=== PATIENT | male | born 1955 | race Caucasian/White ===

== ENCOUNTER 2016-09-05 10:45 | Emergency (ER) | payer BC ==
[2016-09-05] MEDS ORDERED: ceFAZolin 1,000 MG VIAL IM STA (11:23)
--- NOTE | 2016-09-05 11:26 | ED ---
Extremity Problem HPI - General Chief complaint: Extremity Problem,Nontraumatic Stated complaint: rash left ankle Time Seen by Provider: 09/05/16 11:18 Source: patient, RN notes reviewed Mode of arrival: ambulatory Limitations: no limitations - History of Present Illness Initial comments: 61-year-old male present emergency department with chief complaint of left leg rash. Patient states this started over the last few days. Patient states is slightly itchy but states his is hot and red. Patient is not diabetic. Patient states never any like this in the past. No history of MRSA VRE. Patient states that there is no weeping or drainage from the site. Patient denies fever or chills and denies any other areas of rash or any other complaints. - Related Data Previous Rx's Medication Instructions Recorded Sulfamethox-Tmp 800-160Mg [Bactrim 1 each PO Q12HR #20 tab 09/05/16 Ds] Review of Systems ROS Statement: Those systems with pertinent positive or pertinent negative responses have been documented in the HPI. ROS Other: All systems not noted in ROS Statement are negative. Past Medical History Past Medical History: Atrial Fibrillation, Coronary Artery Disease (CAD), Hyperlipidemia, Hypertension History of Any Multi-Drug Resistant Organisms: None Reported Additional Past Surgical History / Comment(s): cardiac ablation Past Psychological History: No Psychological Hx Reported Smoking Status: Never smoker Past Alcohol Use History: Rare Past Drug Use History: None Reported General Exam Limitations: no limitations General appearance: alert, in no apparent distress Respiratory exam: Present: normal lung sounds bilaterally. Absent: respiratory distress, wheezes, rales, rhonchi, stridor Cardiovascular Exam: Present: regular rate, normal rhythm, normal heart sounds. Absent: systolic murmur, diastolic murmur, rubs, gallop, clicks Extremities exam: Present: other (Left lower extremity there is an area of erythema that is approximately 6-7 cm and a small area of blistering noted there is no open lesions or sores pedal pulses equal bilaterally there is warm with palpation) Course Vital Signs 09/05/16 10:56 Temperature 98.5 F Pulse Rate 70 Respiratory 18 Rate Blood Pressure 127/70 O2 Sat by Pulse 96 Oximetry Medical Decision Making - Medical Decision Making 61-year-old male presented for rash was left lower leg. Patient appears to have possible contact dermatitis with secondary cellulitis. Patient will be given a shot of antibiotics and given oral antibiotics at this time patient will have a recheck in one to 2 days and return parameters were discussed. Patient agrees to plan. Disposition Clinical Impression: Left leg cellulitis, Contact dermatitis Disposition: HOME SELF-CARE Condition: Stable Instructions: Cellulitis (ED) Additional Instructions: Please return to the Emergency Department if symptoms worsen or any other concerns. Prescriptions: Sulfamethox-Tmp 800-160Mg [Bactrim Ds] 1 each PO Q12HR #20 tab Referrals: Guevara Simeon MD [Primary Care Provider] - 1-2 days Time of Disposition: 11:25
[2016-09-05 11:50] VITALS: BP 125/77; PULSE 68; RESP 16; TEMP 98.4
== END 2016-09-05 11:51 | disposition home or self-care (01) ==
LOC: EC 10:45
DX: L03.116 Cellulitis of left lower limb (principal); L25.9 Unspecified contact dermatitis, unspecified cause
CPT/HCPCS: 99282; 96372; J0690

== ENCOUNTER → 2016-09-11 | Outpatient (CLI) | payer BC ==
[2016-09-11 08:02] LABS: CHCM 34.6; HDW 2.88; HGB 14.7 gm/dL (13.0-17.5); MCH 32.4 pg (25.0-35.0); MCHC 34.9 g/dL (31.0-37.0); MCV 92.9 fL (80.0-100.0); Mean Platelet Volume 6.6; RBC 4.52 m/uL (4.30-5.90); WBC 7.9 k/uL (3.8-10.6)
--- NOTE | 2016-09-11 08:25 | XR ---
EXAMINATION TYPE: XR chest 2V DATE OF EXAM: 09/11/2016 COMPARISON: 07/16/2015 INDICATION: Wellness check physical TECHNIQUE: Frontal and lateral views of the chest are obtained. FINDINGS: The heart size is normal. The pulmonary vasculature is normal. The lungs are clear. IMPRESSION: 1. No acute pulmonary process.
[2016-09-11 10:32] LABS: Anion Gap 12 mmol/L; Blood Urea Nitrogen 15 mg/dL (9-20); Carbon Dioxide 25 mmol/L (22-30); Chloride 102 mmol/L (98-107); Glucose 101 mg/dL (74-99); Potassium 4.4 mmol/L (3.5-5.1); Sodium 139 mmol/L (137-145)
[2016-09-11 10:33] LABS: ALT 44 U/L (21-72); AST 26 U/L (17-59); Alkaline Phosphatase 84 U/L (38-126); Calcium 9.7 mg/dL (8.4-10.2); Cholesterol 136 mg/dL (<200); HDL Cholesterol 55 mg/dL (40-60); Non-African American GFR(MDRD) >60 (>60 ml/min/1.73 sqM); Total Bilirubin 0.7 mg/dL (0.2-1.3); Total Protein 6.9 g/dL (6.3-8.2); Triglycerides 64 mg/dL (<150)
[2016-09-11 11:00] LABS: Prostate Specific Antigen 1.57 ng/mL (0.00-4.00)
== END | disposition home or self-care (01) ==
LOC: LABWHC1 07:23
PROVIDERS: ATTEND Internal Medicine
DX: Z00.00 Encounter for general adult medical examination without abnormal findings (principal); E78.2 Mixed hyperlipidemia; I11.9 Hypertensive heart disease without heart failure; I48.91 Unspecified atrial fibrillation; G47.30 Sleep apnea, unspecified; K21.0 Gastro-esophageal reflux disease with esophagitis; E66.1 Drug-induced obesity
CPT/HCPCS: 36415; 71020; 80053; 80061; 82272; 84153; 84439; 84443; 85027

== ENCOUNTER → 2016-10-02 | Outpatient (CLI) | payer BC ==
[2016-10-02 08:47] LABS: Anion Gap 9 mmol/L; Blood Urea Nitrogen 15 mg/dL (9-20); Calcium 9.7 mg/dL (8.4-10.2); Carbon Dioxide 28 mmol/L (22-30); Chloride 103 mmol/L (98-107); Glucose 104 mg/dL (74-99); Magnesium 1.8 mg/dL (1.6-2.3); Non-African American GFR(MDRD) >60 (>60 ml/min/1.73 sqM); Potassium 5.2 mmol/L (3.5-5.1); Sodium 140 mmol/L (137-145)
== END | disposition home or self-care (01) ==
LOC: LABWHC1 07:29
PROVIDERS: ATTEND Internal Medicine Clinical Cardiac Electrophysiology
DX: I25.10 Atherosclerotic heart disease of native coronary artery without angina pectoris (principal); I48.91 Unspecified atrial fibrillation
CPT/HCPCS: 36415; 80048; 83735

== ENCOUNTER → 2016-12-03 | Outpatient (CLI) | payer BC ==
[2016-12-03 08:53] LABS: Anion Gap 9 mmol/L; Blood Urea Nitrogen 15 mg/dL (9-20); Calcium 10.1 mg/dL (8.4-10.2); Carbon Dioxide 30 mmol/L (22-30); Chloride 103 mmol/L (98-107); Glucose 100 mg/dL (74-99); Magnesium 1.9 mg/dL (1.6-2.3); Non-African American GFR(MDRD) >60 (>60 ml/min/1.73 sqM); Potassium 5.2 mmol/L (3.5-5.1); Sodium 142 mmol/L (137-145)
== END | disposition home or self-care (01) ==
LOC: LABWHC1 08:01
PROVIDERS: ATTEND Internal Medicine Clinical Cardiac Electrophysiology
DX: I48.91 Unspecified atrial fibrillation (principal); I25.10 Atherosclerotic heart disease of native coronary artery without angina pectoris; Z79.899 Other long term (current) drug therapy
CPT/HCPCS: 36415; 80048; 83735

== ENCOUNTER → 2017-04-23 | Outpatient (CLI) | payer BC ==
[2017-04-23 09:03] LABS: Anion Gap 10 mmol/L; Blood Urea Nitrogen 18 mg/dL (9-20); Calcium 10.3 mg/dL (8.4-10.2); Carbon Dioxide 28 mmol/L (22-30); Chloride 105 mmol/L (98-107); Cholesterol 149 mg/dL (<200); Glucose 105 mg/dL (74-99); HDL Cholesterol 63 mg/dL (40-60); LDL Cholesterol,Calculated 68 mg/dL (0-99); Potassium 4.8 mmol/L (3.5-5.1); Sodium 143 mmol/L (137-145); Triglycerides 90 mg/dL (<150)
== END | disposition home or self-care (01) ==
LOC: LABWHC1 07:21
PROVIDERS: ATTEND Internal Medicine Clinical Cardiac Electrophysiology
DX: I48.91 Unspecified atrial fibrillation (principal); I10 Essential (primary) hypertension
CPT/HCPCS: 36415; 80048; 80061; 83735; 84443

== ENCOUNTER 2017-05-05 20:38 | Emergency (ER) | payer BC ==
[2017-05-05 20:51] VITALS: TEMP 97.9
--- NOTE | 2017-05-05 21:24 | ED ---
General Adult HPI - General Chief complaint: Recheck/Abnormal Lab/Rx Stated complaint: A-Fib Time Seen by Provider: 05/05/17 20:56 Source: patient, RN notes reviewed Mode of arrival: ambulatory Limitations: no limitations - History of Present Illness Initial comments: 62-year-old male presents emergency Department with chief complaint of concern for A. fib. 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 fib. Patient states his been well-controlled last 5 years on tikosyn. It patient denies any associated shortness of breath as usual. Denies headache, dizziness, chest pain. He states he just felt a little fluttering states that he tried to check his pulse and fell cutting may have felt a skipped beat. 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 - Related Data Home Medications Medication Instructions Recorded Confirmed Aspirin EC [Ecotrin Low Dose] 81 mg PO DAILY 09/05/16 05/05/17 Atenolol [Tenormin] 12.5 mg PO HS 09/05/16 05/05/17 Cholecalciferol [Vitamin D3] 5,000 unit PO DAILY 09/05/16 05/05/17 Dofetilide [Tikosyn] 500 mcg PO Q12HR 09/05/16 05/05/17 Kaylynn C 1 tab PO BID 09/05/16 05/05/17 Lisinopril [Zestril] 20 mg PO BID 09/05/16 05/05/17 Magnesium Chloride [Slow-Mag] 64 mg PO BID 09/05/16 05/05/17 Multivitamins, Thera [Multivitamin 1 tab PO HS 09/05/16 05/05/17 (formulary)] [place]-3 Fatty Acids/Fish Oil [Fish 1 cap PO BID 09/05/16 05/05/17 Oil 1,000 mg Capsule] Omeprazole 20 mg PO HS 09/05/16 05/05/17 Rivaroxaban [Xarelto] 20 mg PO HS 09/05/16 05/05/17 Simvastatin [Zocor] 20 mg PO HS 09/05/16 05/05/17 Vitamin E (Dl,Tocopheryl Acet) 400 unit PO BID 09/05/16 05/05/17 [Vitamin E] Acetaminophen [Tylenol Extra 1,000 mg PO DAILY 05/05/17 05/05/17 Strength] Indomethacin [Indocin] 50 mg PO HS 05/05/17 05/05/17 Allergies Allergy/AdvReac Type Severity Reaction Status Date / Time azithromycin [From Zithromax] AdvReac Unknown Verified 05/05/17 22:00 ciprofloxacin [From Cipro] AdvReac Unknown Verified 05/05/17 22:00 clarithromycin [From Biaxin] AdvReac Unknown Verified 05/05/17 22:00 levofloxacin [From Levaquin] AdvReac Unknown Verified 05/05/17 22:00 sulfamethoxazole AdvReac Unknown Verified 05/05/17 22:00 [From Bactrim] trimethoprim [From Bactrim] AdvReac Unknown Verified 05/05/17 22:00 Review of Systems ROS Statement: Those systems with pertinent positive or pertinent negative responses have been documented in the HPI. ROS Other: All systems not noted in ROS Statement are negative. Past Medical History Past Medical History: Atrial Fibrillation, Coronary Artery Disease (CAD), Hyperlipidemia, Hypertension History of Any Multi-Drug Resistant Organisms: None Reported Additional Past Surgical History / Comment(s): cardiac ablation, left eardrum surgery Past Anesthesia/Blood Transfusion Reactions: No Reported Reaction Past Psychological History: No Psychological Hx Reported Smoking Status: Former smoker Past Alcohol Use History: Rare Past Drug Use History: None Reported - Past Family History Mother Family Medical History: Cancer Additional Family Medical History / Comment(s): colon cancer Sister(s) Additional Family Medical History / Comment(s): brain cancer Father Family Medical History: Cancer Additional Family Medical History / Comment(s): bladder cancer Brother(s) Additional Family Medical History / Comment(s): MS General Exam Limitations: no limitations General appearance: alert, in no apparent distress Head exam: Present: atraumatic, normocephalic, normal inspection Neck exam: Present: normal inspection, full ROM. Absent: tenderness, meningismus, lymphadenopathy Respiratory exam: Present: normal lung sounds bilaterally. Absent: respiratory distress, wheezes, rales, rhonchi, stridor Cardiovascular Exam: Present: regular rate, normal rhythm, normal heart sounds. Absent: systolic murmur, diastolic murmur, rubs, gallop, clicks GI/Abdominal exam: Present: soft, normal bowel sounds. Absent: distended, tenderness, guarding, rebound, rigid Skin exam: Present: warm, dry, intact, normal color. Absent: rash Course Vital Signs 05/05/17 05/05/17 05/05/17 20:48 21:50 22:21 Temperature 97.9 F Pulse Rate 94 83 75 Respiratory 18 19 18 Rate Blood Pressure 150/85 133/65 132/62 O2 Sat by Pulse 96 94 L 95 Oximetry - Reevaluation(s) Reevaluation #1: 05/05/17 22:31 Patient reevaluated patient is symptom-free has no recurrent symptoms. Updated on results. EKG Findings - EKG Comments: EKG Findings:: EKG performed at 20:59 normal sinus rhythm with a rate of 89 WI 1 :30 QRS 78 QT/QTC 344/418 EKG compared to prior on 03/02/2017 Medical Decision Making - Medical Decision Making 62-year-old male present emergency department for concern of A. fib. Does have a history of A. fib he's had no abnormal rhythms here in emergency department. Patient is not in A. fib at this time. Patient states she is symptom-free will be discharged. - Lab Data Result diagrams: 05/05/17 21:30 05/05/17 21:30 Lab Results 05/05/17 05/05/17 05/05/17 Range/Units 21:30 21:30 21:30 WBC 5.9 (3.8-10.6) k/uL RBC 4.49 (4.30-5.90) m/uL Hgb 14.1 (13.0-17.5) gm/dL Hct 42.9 (39.0-53.0) % MCV 95.6 (80.0-100.0) fL MCH 31.5 (25.0-35.0) pg MCHC 32.9 (31.0-37.0) g/dL RDW 14.2 (11.5-15.5) % Plt Count 214 (150-450) k/uL Neutrophils % 65 % Lymphocytes % 22 % Monocytes % 9 % Eosinophils % 2 % Basophils % 0 % Neutrophils # 3.8 (1.3-7.7) k/uL Lymphocytes # 1.3 (1.0-4.8) k/uL Monocytes # 0.5 (0-1.0) k/uL Eosinophils # 0.1 (0-0.7) k/uL Basophils # 0.0 (0-0.2) k/uL PT (9.0-12.0) sec INR (<1.2) APTT (22.0-30.0) sec Sodium 140 (137-145) mmol/L Potassium 4.2 (3.5-5.1) mmol/L Chloride 102 (98-107) mmol/L Carbon Dioxide 27 (22-30) mmol/L Anion Gap 11 mmol/L BUN 15 (9-20) mg/dL Creatinine 0.50 L (0.66-1.25) mg/dL Est GFR (MDRD) Af Amer >60 (>60 ml/min/1.73 sqM) Est GFR (MDRD) Non-Af >60 (>60 ml/min/1.73 sqM) Glucose 146 H (74-99) mg/dL Calcium 9.8 (8.4-10.2) mg/dL Magnesium 1.9 (1.6-2.3) mg/dL Total Bilirubin 0.5 (0.2-1.3) mg/dL AST 42 (17-59) U/L ALT 38 (21-72) U/L Alkaline Phosphatase 69 (38-126) U/L Total Creatine Kinase 327 H (55-170) U/L CK-MB (CK-2) 1.7 (0.0-2.4) ng/mL CK-MB (CK-2) Rel Index 0.5 Troponin I <0.012 (0.000-0.034) ng/mL Total Protein 6.9 (6.3-8.2) g/dL Albumin 4.0 (3.5-5.0) g/dL 05/05/17 Range/Units 21:30 WBC (3.8-10.6) k/uL RBC (4.30-5.90) m/uL Hgb (13.0-17.5) gm/dL Hct (39.0-53.0) % MCV (80.0-100.0) fL MCH (25.0-35.0) pg MCHC (31.0-37.0) g/dL RDW (11.5-15.5) % Plt Count (150-450) k/uL Neutrophils % % Lymphocytes % % Monocytes % % Eosinophils % % Basophils % % Neutrophils # (1.3-7.7) k/uL Lymphocytes # (1.0-4.8) k/uL Monocytes # (0-1.0) k/uL Eosinophils # (0-0.7) k/uL Basophils # (0-0.2) k/uL PT 10.4 (9.0-12.0) sec INR 1.1 (<1.2) APTT 23.2 (22.0-30.0) sec Sodium (137-145) mmol/L Potassium (3.5-5.1) mmol/L Chloride (98-107) mmol/L Carbon Dioxide (22-30) mmol/L Anion Gap mmol/L BUN (9-20) mg/dL Creatinine (0.66-1.25) mg/dL Est GFR (MDRD) Af Amer (>60 ml/min/1.73 sqM) Est GFR (MDRD) Non-Af (>60 ml/min/1.73 sqM) Glucose (74-99) mg/dL Calcium (8.4-10.2) mg/dL Magnesium (1.6-2.3) mg/dL Total Bilirubin (0.2-1.3) mg/dL AST (17-59) U/L ALT (21-72) U/L Alkaline Phosphatase (38-126) U/L Total Creatine Kinase (55-170) U/L CK-MB (CK-2) (0.0-2.4) ng/mL CK-MB (CK-2) Rel Index Troponin I (0.000-0.034) ng/mL Total Protein (6.3-8.2) g/dL Albumin (3.5-5.0) g/dL Disposition Clinical Impression: Palpitations Disposition: HOME SELF-CARE Condition: Stable Instructions: Palpitations (ED) Additional Instructions: Please return to the Emergency Department if symptoms worsen or any other concerns. Referrals: Guevara Simeon MD [Primary Care Provider] - 1-2 days Time of Disposition: 22:32
[2017-05-05 21:46] LABS: Basophils % (A) 0 %; Eosinophils # (A) 0.1 k/uL (0-0.7); Eosinophils % (A) 2 %; HCT 42.9 % (39.0-53.0); HGB 14.1 gm/dL (13.0-17.5); Lymphocytes # (A) 1.3 k/uL (1.0-4.8); Lymphocytes % (A) 22 %; MCH 31.5 pg (25.0-35.0); MCHC 32.9 g/dL (31.0-37.0); MCV 95.6 fL (80.0-100.0); Monocytes # (A) 0.5 k/uL (0-1.0); Monocytes % (A) 9 %; Neutrophils # (A) 3.8 k/uL (1.3-7.7); Neutrophils % (A) 65 %; Platelet Count 214 k/uL (150-450); RBC 4.49 m/uL (4.30-5.90); RDW 14.2 % (11.5-15.5); WBC 5.9 k/uL (3.8-10.6)
[2017-05-05 21:48] LABS: INR 1.1 (<1.2); Partial Thromboplastin Time 23.2 sec (22.0-30.0); Prothrombin Time 10.4 sec (9.0-12.0)
[2017-05-05 21:49] LABS: ALT 38 U/L (21-72); AST 42 U/L (17-59); Alkaline Phosphatase 69 U/L (38-126); Anion Gap 11 mmol/L; Blood Urea Nitrogen 15 mg/dL (9-20); Calcium 9.8 mg/dL (8.4-10.2); Carbon Dioxide 27 mmol/L (22-30); Chloride 102 mmol/L (98-107); Glucose 146 mg/dL (74-99); Magnesium 1.9 mg/dL (1.6-2.3); Potassium 4.2 mmol/L (3.5-5.1); Sodium 140 mmol/L (137-145); Total Bilirubin 0.5 mg/dL (0.2-1.3); Total Protein 6.9 g/dL (6.3-8.2)
[2017-05-05 21:52] LABS: Creatine Kinase 327 U/L (55-170)
--- NOTE | 2017-05-05 22:02 | XR ---
EXAMINATION TYPE: XR chest 2V DATE OF EXAM: 05/05/2017 COMPARISON: Prior chest x-ray 09/11/2016 HISTORY: Chest pain TECHNIQUE: Frontal and lateral views of the chest are obtained. FINDINGS: Patient is rotated. There is no focal air space opacity, pleural effusion, or pneumothorax seen. The cardiac silhouette size is stable. There are overlying cardiac leads. The osseous structu res are intact. IMPRESSION: No acute cardiopulmonary process.
[2017-05-05 22:05] LABS: Creatine Kinase MB 1.7 ng/mL (0.0-2.4); Troponin I <0.012 ng/mL (0.000-0.034)
[2017-05-05 22:41] VITALS: BP 133/70; PULSE 72; RESP 24
== END 2017-05-05 22:41 | disposition home or self-care (01) ==
LOC: EC 20:38
DX: R00.2 Palpitations (principal); I48.91 Unspecified atrial fibrillation; I25.10 Atherosclerotic heart disease of native coronary artery without angina pectoris; E78.5 Hyperlipidemia, unspecified; I10 Essential (primary) hypertension; Z87.891 Personal history of nicotine dependence; Z79.01 Long term (current) use of anticoagulants; Z79.1 Long term (current) use of non-steroidal anti-inflammatories (NSAID); Z79.82 Long term (current) use of aspirin; Z79.899 Other long term (current) drug therapy; Z88.1 Allergy status to other antibiotic agents; Z88.2 Allergy status to sulfonamides
CPT/HCPCS: 36415; 71046; 80053; 82550; 82553; 83735; 84484; 85025; 85610; 85730; 93005; 99285

== ENCOUNTER → 2017-11-11 | Outpatient (CLI) | payer BC ==
[2017-11-11 08:29] LABS: HCT 50.2 % (39.0-53.0); MCH 31.6 pg (25.0-35.0); MCHC 31.8 g/dL (31.0-37.0); MCV 99.6 fL (80.0-100.0); Macrocytosis Slight; Mean Platelet Volume 6.8; Platelet Count 179 k/uL (150-450); RBC 5.04 m/uL (4.30-5.90); RDW 14.5 % (11.5-15.5); WBC 8.1 k/uL (3.8-10.6)
[2017-11-11 11:36] LABS: ALT 55 U/L (21-72); AST 56 U/L (17-59); Albumin 4.4 g/dL (3.5-5.0); Alkaline Phosphatase 70 U/L (38-126); Anion Gap 10 mmol/L; Blood Urea Nitrogen 15 mg/dL (9-20); Calcium 9.9 mg/dL (8.4-10.2); Carbon Dioxide 23 mmol/L (22-30); Chloride 105 mmol/L (98-107); Cholesterol 152 mg/dL (<200); Glucose 102 mg/dL (74-99); HDL Cholesterol 61 mg/dL (40-60); LDL Cholesterol,Calculated 77 mg/dL (0-99); Magnesium 1.9 mg/dL (1.6-2.3); Sodium 138 mmol/L (137-145); Total Protein 7.7 g/dL (6.3-8.2); Triglycerides 72 mg/dL (<150)
[2017-11-11 11:53] LABS: T4, Free (Free Thyroxine) 1.13 ng/dL (0.78-2.19)
[2017-11-11 12:06] LABS: PSA Annual Screen 1.34 ng/mL (0.00-4.00)
== END | disposition home or self-care (01) ==
LOC: LABWHC1 08:13
PROVIDERS: ATTEND Internal Medicine Clinical Cardiac Electrophysiology
DX: Z00.00 Encounter for general adult medical examination without abnormal findings (principal); I11.9 Hypertensive heart disease without heart failure; E78.2 Mixed hyperlipidemia; N40.0 Benign prostatic hyperplasia without lower urinary tract symptoms; Z12.5 Encounter for screening for malignant neoplasm of prostate
CPT/HCPCS: 84439; 80061; 80053; 83735; 84443; 85027; 36415; G0103

== ENCOUNTER 2017-11-19 08:14 | Inpatient (IN) | payer BC ==
[2017-11-19 09:16] LABS: Basophils % (A) 0 %; Eosinophils # (A) 0.2 k/uL (0-0.7); Eosinophils % (A) 1 %; HCT 48.1 % (39.0-53.0); HGB 15.7 gm/dL (13.0-17.5); Lymphocytes # (A) 0.8 k/uL (1.0-4.8); Lymphocytes % (A) 5 %; MCH 31.1 pg (25.0-35.0); MCHC 32.6 g/dL (31.0-37.0); MCV 95.3 fL (80.0-100.0); Mean Platelet Volume 6.6; Monocytes # (A) 0.8 k/uL (0-1.0); Monocytes % (A) 5 %; Neutrophils # (A) 14.7 k/uL (1.3-7.7); Neutrophils % (A) 89 %; Platelet Count 210 k/uL (150-450); RBC 5.05 m/uL (4.30-5.90); RDW 14.5 % (11.5-15.5); WBC 16.6 k/uL (3.8-10.6)
[2017-11-19 09:24] LABS: ALT 54 U/L (21-72); AST 43 U/L (17-59); Albumin 4.3 g/dL (3.5-5.0); Alkaline Phosphatase 69 U/L (38-126); Amylase 42 U/L (30-110); Anion Gap 12 mmol/L; Blood Urea Nitrogen 14 mg/dL (9-20); Calcium 9.9 mg/dL (8.4-10.2); Carbon Dioxide 27 mmol/L (22-30); Chloride 99 mmol/L (98-107); Glucose 144 mg/dL (74-99); Lipase 63 U/L (23-300); Potassium 4.6 mmol/L (3.5-5.1); Sodium 138 mmol/L (137-145); Total Bilirubin 1.2 mg/dL (0.2-1.3); Total Protein 7.4 g/dL (6.3-8.2)
--- NOTE | 2017-11-19 09:25 | XR ---
EXAMINATION TYPE: XR KUB DATE OF EXAM: 11/19/2017 COMPARISON: None INDICATION: Mid abdomen pain TECHNIQUE: Single view abdomen upright view FINDINGS: There is a normal bowel gas pattern. Some nonspecific small bowel gas is within the midabdomen. No si gnificant fecal retention is evident. Psoas margins are normal. No organomegaly is present. IMPRESSION: 1. Unremarkable Abdomen
[2017-11-19] MEDS ORDERED: SODIUM CHLORIDE 0.9% 1,000 ML IV STA ×2 (12:01→15:43)
[2017-11-19] MEDS ORDERED: MORPHINE SULFATE 4 MG/ML SYRINGE IVP STA (12:01)
[2017-11-19 13:01] LABS: Appearance,Urine Clear (Clear); Bilirubin,Urine Negative (Negative); Blood,Urine Negative (Negative); Color,Urine Yellow; Glucose,Urine (UA) Negative (Negative); Hyaline Casts,Urine 1 /lpf (0-2); Ketones,Urine 1+ (Negative); Leukocyte Esterase,Urine Negative (Negative); Mucus,Urine Moderate /hpf; Nitrite,Urine Negative (Negative); Protein,Urine 1+ (Negative); RBC,Urine 5 /hpf (0-5); Specific Gravity,Urine 1.023 (1.001-1.035); Squamous Epithelial Cell,Urine 1 /hpf (0-4); Urobilinogen,Urine <2.0 mg/dL (<2.0); WBC,Urine 2 /hpf (0-5)
--- NOTE | 2017-11-19 13:07 | CT ---
EXAMINATION TYPE: CT abdomen pelvis w con DATE OF EXAM: 11/19/2017 COMPARISON: NONE HISTORY: 62-year-old male with pain TECHNIQUE: Contiguous axial scanning of the abdomen and pelvis following administration of 100 ml Iso belen 300 IV contrast. Delayed images through the kidneys and coronal/sagittal reconstructions perform ed. CT DLP: 2856 mGycm Automated exposure control for dose reduction was used. FINDINGS: Heart upper limits of normal in size without pericardial effusion. Coronary vessel calcifications are seen. Strandy atelectasis in the lower lungs without pleural effusion. Mild bronchial wall thickenin g could represent bronchitis or asthma. Liver enlarged measuring 23.5 cm with marked low attenuation. Gallbladder hydropic measuring 4.9 cm wide. There may be mild adjacent fat stranding, refer to axial image 28. No biliary ductal dilatation seen. Portal venous system appears patent. Adrenal glands, kidneys, spleen, pancreas appear within normal limits. No dilated small bowel, free fluid, or free air. No mesenteric or retroperitoneal lymphadenopathy. Normal appendix. Mild overall stool burden. No pericolonic inflammatory changes. Bladder incompletely distended. Prostate gland measures 6.2 cm wide. No abnormal fluid collection in the pelvis or pelvic lymphadenopathy seen. Bones: Degenerative changes at the hips and SI joints. Moderate degenerative disc disease throughout the visualized spine. Additional facet arthropathy lower lumbar spine. IMPRESSION: 1. HYDROPIC GALLBLADDER. THERE MAY BE ADJACENT MILD FAT STRANDING. Consider gallbladder ultrasound or HIDA scan to exclude early acute cholecystitis. 2. Hepatomegaly (23.5 cm) with marked hepatic steatosis. 3. Prostatomegaly (6.2 cm wide).
--- NOTE | 2017-11-19 14:06 | ED ---
General Adult HPI - General Chief complaint: Abdominal Pain Stated complaint: ABDOMINAL PAIN Time Seen by Provider: 11/19/17 12:00 Source: patient, RN notes reviewed, old records reviewed Mode of arrival: ambulatory Limitations: no limitations - History of Present Illness Initial comments: This is a 62-year-old male the ER for evaluation. Patient presents today for evasive severe abdominal pain. Patient has no significant history of abdominal surgeries. Occasionally does abdominal pain. Patient developing severe epigastric right upper quadrant periumbilical. Patient states pain is mostly diffuse no nausea no vomiting no fevers. No diarrhea. No recent travel history no sick contacts no other significant symptoms - Related Data Home Medications Medication Instructions Recorded Confirmed Aspirin EC [Ecotrin Low Dose] 81 mg PO DAILY 09/05/16 11/19/17 Atenolol [Tenormin] 12.5 mg PO HS 09/05/16 11/19/17 Cholecalciferol [Vitamin D3] 5,000 unit PO DAILY 09/05/16 11/19/17 Dofetilide [Tikosyn] 500 mcg PO Q12HR 09/05/16 11/19/17 Kaylynn C 1 tab PO BID 09/05/16 11/19/17 Lisinopril [Zestril] 20 mg PO BID 09/05/16 11/19/17 Magnesium Chloride [Slow-Mag] 64 mg PO BID 09/05/16 11/19/17 Multivitamins, Thera [Multivitamin 1 tab PO HS 09/05/16 11/19/17 (formulary)] [place]-3 Fatty Acids/Fish Oil [Fish 1 cap PO BID 09/05/16 11/19/17 Oil 1,000 mg Capsule] Omeprazole 20 mg PO HS 09/05/16 11/19/17 Rivaroxaban [Xarelto] 20 mg PO HS 09/05/16 11/19/17 Simvastatin [Zocor] 20 mg PO HS 09/05/16 11/19/17 Vitamin E (Dl,Tocopheryl Acet) 400 unit PO BID 09/05/16 11/19/17 [Vitamin E] Acetaminophen [Tylenol Extra 1,000 mg PO DAILY 05/05/17 11/19/17 Strength] Indomethacin [Indocin] 50 mg PO HS 05/05/17 11/19/17 Allergies Allergy/AdvReac Type Severity Reaction Status Date / Time azithromycin [From Zithromax] AdvReac Unknown Verified 11/19/17 12:19 ciprofloxacin [From Cipro] AdvReac Unknown Verified 11/19/17 12:19 clarithromycin [From Biaxin] AdvReac Unknown Verified 11/19/17 12:19 levofloxacin [From Levaquin] AdvReac Unknown Verified 11/19/17 12:19 sulfamethoxazole AdvReac Unknown Verified 11/19/17 12:19 [From Bactrim] trimethoprim [From Bactrim] AdvReac Unknown Verified 11/19/17 12:19 Review of Systems ROS Statement: Those systems with pertinent positive or pertinent negative responses have been documented in the HPI. ROS Other: All systems not noted in ROS Statement are negative. Past Medical History Past Medical History: Atrial Fibrillation, Coronary Artery Disease (CAD), Hyperlipidemia, Hypertension History of Any Multi-Drug Resistant Organisms: None Reported Additional Past Surgical History / Comment(s): cardiac ablation, left eardrum surgery Past Anesthesia/Blood Transfusion Reactions: No Reported Reaction Past Psychological History: No Psychological Hx Reported Smoking Status: Former smoker Past Alcohol Use History: Rare Past Drug Use History: None Reported - Past Family History Mother Family Medical History: Cancer Additional Family Medical History / Comment(s): colon cancer Sister(s) Additional Family Medical History / Comment(s): brain cancer Father Family Medical History: Cancer Additional Family Medical History / Comment(s): bladder cancer Brother(s) Additional Family Medical History / Comment(s): MS General Exam Limitations: no limitations General appearance: alert, in no apparent distress Head exam: Present: atraumatic, normocephalic, normal inspection Eye exam: Present: normal appearance, PERRL, EOMI. Absent: scleral icterus, conjunctival injection, periorbital swelling ENT exam: Present: normal exam, mucous membranes moist Neck exam: Present: normal inspection. Absent: tenderness, meningismus, lymphadenopathy Respiratory exam: Present: normal lung sounds bilaterally. Absent: respiratory distress, wheezes, rales, rhonchi, stridor Cardiovascular Exam: Present: regular rate, normal rhythm, normal heart sounds. Absent: systolic murmur, diastolic murmur, rubs, gallop, clicks GI/Abdominal exam: Present: distended, tenderness, normal bowel sounds. Absent : guarding, rebound, rigid Extremities exam: Present: normal inspection, full ROM, normal capillary refill. Absent: tenderness, pedal edema, joint swelling, calf tenderness Back exam: Present: normal inspection Neurological exam: Present: alert, oriented X3, CN II-XII intact Psychiatric exam: Present: normal affect, normal mood Skin exam: Present: warm, dry, intact, normal color. Absent: rash Course Vital Signs 11/19/17 08:35 Temperature 98.4 F Pulse Rate 87 Respiratory 18 Rate Blood Pressure 159/89 O2 Sat by Pulse 97 Oximetry - Reevaluation(s) Reevaluation #1: 11/19/17 15:44 A she currently having much improved pain control Medical Decision Making - Medical Decision Making This is a male the ER for evaluation of bowel pain, likely cholecystitis. Patient has CT HERE IN THE ER, WILL ADMIT FOR NOTHING BY MOUTH, SYMPTOM MANAGEMENT AND SURGICAL CONSULTATION - Lab Data Result diagrams: 11/19/17 08:53 11/19/17 08:53 Lab Results 11/19/17 11/19/17 11/19/17 Range/Units 08:53 08:53 12:15 WBC 16.6 H (3.8-10.6) k/uL RBC 5.05 (4.30-5.90) m/uL Hgb 15.7 (13.0-17.5) gm/dL Hct 48.1 (39.0-53.0) % MCV 95.3 (80.0-100.0) fL MCH 31.1 (25.0-35.0) pg MCHC 32.6 (31.0-37.0) g/dL RDW 14.5 (11.5-15.5) % Plt Count 210 (150-450) k/uL Neutrophils % 89 % Lymphocytes % 5 % Monocytes % 5 % Eosinophils % 1 % Basophils % 0 % Neutrophils # 14.7 H (1.3-7.7) k/uL Lymphocytes # 0.8 L (1.0-4.8) k/uL Monocytes # 0.8 (0-1.0) k/uL Eosinophils # 0.2 (0-0.7) k/uL Basophils # 0.0 (0-0.2) k/uL Sodium 138 (137-145) mmol/L Potassium 4.6 (3.5-5.1) mmol/L Chloride 99 (98-107) mmol/L Carbon Dioxide 27 (22-30) mmol/L Anion Gap 12 mmol/L BUN 14 (9-20) mg/dL Creatinine 0.59 L (0.66-1.25) mg/dL Est GFR (CKD-EPI)AfAm >90 (>60 ml/min/1.73 sqM) Est GFR (CKD-EPI)NonAf >90 (>60 ml/min/1.73 sqM) Glucose 144 H (74-99) mg/dL Calcium 9.9 (8.4-10.2) mg/dL Total Bilirubin 1.2 (0.2-1.3) mg/dL AST 43 (17-59) U/L ALT 54 (21-72) U/L Alkaline Phosphatase 69 (38-126) U/L Total Protein 7.4 (6.3-8.2) g/dL Albumin 4.3 (3.5-5.0) g/dL Amylase 42 (30-110) U/L Lipase 63 (23-300) U/L Urine Color Yellow Urine Appearance Clear (Clear) Urine pH 6.0 (5.0-8.0) Ur Specific [place] 1.023 (1.001-1.035) Urine Protein 1+ H (Negative) Urine Glucose (UA) Negative (Negative) Urine Ketones 1+ H (Negative) Urine Blood Negative (Negative) Urine Nitrite Negative (Negative) Urine Bilirubin Negative (Negative) Urine Urobilinogen <2.0 (<2.0) mg/dL Ur Leukocyte Esterase Negative (Negative) Urine RBC 5 (0-5) /hpf Urine WBC 2 (0-5) /hpf Ur Squamous Epith Cells 1 (0-4) /hpf Hyaline Casts 1 (0-2) /lpf Urine Mucus Moderate H (None) /hpf - Radiology Data Radiology results: report reviewed (CT abdomen pelvis shows maybe distended gallbladder, ultrasound shows likely positive cholecystitis), image reviewed Disposition Clinical Impression: Abdominal pain, Acute cholecystitis Disposition: ADMITTED IP TO THIS HOSP Condition: Good Is patient prescribed a controlled substance at d/c from ED?: No Referrals: Guevara Simeon MD [Primary Care Provider] - 1-2 days
--- NOTE | 2017-11-19 15:16 | US ---
EXAMINATION TYPE: US gallbladder DATE OF EXAM: 11/19/2017 COMPARISON: NONE CLINICAL HISTORY: Pain. Abdominal pain, abnormal CT EXAM MEASUREMENTS: Liver Length: 22.4 cm Gallbladder Wall: 0.5 cm CBD: 0.6 cm Right Kidney: 14.4 x 6.6 x 6.1 cm Extreme technical limitations due to patient's body habitus (370 pounds) and large amount of overly ing bowel Pancreas: Obscured by bowel gas Liver: limited evaluation, appears enlarged . Normal less than 15.5 cm. Echotexture is diminished co mpatible some moderate fatty infiltration liver Gallbladder: limited evaluation, hydropic, GB wall appears thickened Evidence for sonographic Bowles's sign: yes CBD: wnl Right Kidney: no evidence of hydronephrosis IMPRESSION: 1. Moderate fatty infiltration liver. 2. Thickened gallbladder wall. Clinical correlation recommended for acute cholecystitis.
[2017-11-19] MEDS ORDERED: SODIUM CHLORIDE 0.9% 1,000 ML IV ONE (15:41)
[2017-11-19] MEDS ORDERED: ONDANSETRON 4 MG/2 ML VIAL IVP PRN (15:43)
[2017-11-19] MEDS ORDERED: ONDANSETRON 4 MG/2 ML VIAL IVP STA (15:43)
[2017-11-19] MEDS ORDERED: AMPICILLIN-SULBACTAM 3 GM in SODIUM CHLORIDE 0.9% 100 ML IVPB STA (15:43)
--- NOTE | 2017-11-19 19:56 | P.GSCN ---
History of Present Illness Consult date: 11/19/17 Reason for Consult: Abdominal pain History of present illness: 62-year-old male presents to the ER with complaints of pain that began yesterday. Patient states he did not sleep well last night as a result of the pain. Pain is across the upper abdomen. Slightly increased in the right side. Denies history of similar events. No history of known ulcer disease or gallbladder disease. Patient had a ultrasound of the gallbladder showing some bladder wall thickening. CAT scan likewise shows some slight inflammatory change of the gallbladder. No gallstones were seen. Patient took his last dose of Xarelto this morning. No shortness of breath. No change in bowel habits. Denies nausea or vomiting. Liver enzymes thus far are normal. White blood cell count elevated at 16.6. Review of Systems The patient denies any acute changes in vision or hearing, no dysphagia or odynophagia, no chest pain or shortness of breath, no dysuria or hematuria, no headache, no runny nose, no rectal bleeding or melena, no unexplained weight loss Past Medical History Past Medical History: Atrial Fibrillation, Coronary Artery Disease (CAD), GERD/ Reflux, Hyperlipidemia, Hypertension, Osteoarthritis (OA), Sleep Apnea/CPAP/ BIPAP Additional Past Medical History / Comment(s): "enlarged heart", beginning of cataracts domonique eyes, past cellulits lt testical and uti-ecoli 02-28-17. use3s cpap machine for liz. History of Any Multi-Drug Resistant Organisms: None Reported Past Surgical History: Heart Catheterization Additional Past Surgical History / Comment(s): cardiac ablation,cardioversion, ep studies left eardrum surgery , rt knee arthroscopy Past Anesthesia/Blood Transfusion Reactions: No Reported Reaction Smoking Status: Former smoker - Past Family History Mother Family Medical History: Cancer Additional Family Medical History / Comment(s): colon cancer Sister(s) Additional Family Medical History / Comment(s): brain cancer Father Family Medical History: Cancer Additional Family Medical History / Comment(s): bladder cancer Brother(s) Additional Family Medical History / Comment(s): MS Medications and Allergies Home Medications Medication Instructions Recorded Confirmed Type Aspirin EC [Ecotrin Low Dose] 81 mg PO DAILY 09/05/16 11/19/17 History Atenolol [Tenormin] 12.5 mg PO HS 09/05/16 11/19/17 History Cholecalciferol [Vitamin D3] 5,000 unit PO DAILY 09/05/16 11/19/17 History Dofetilide [Tikosyn] 500 mcg PO Q12HR 09/05/16 11/19/17 History Kaylynn C 1 tab PO BID 09/05/16 11/19/17 History Lisinopril [Zestril] 20 mg PO BID 09/05/16 11/19/17 History Magnesium Chloride [Slow-Mag] 64 mg PO BID 09/05/16 11/19/17 History Multivitamins, Thera [Multivitamin 1 tab PO HS 09/05/16 11/19/17 History (formulary)] Jasper-3 Fatty Acids/Fish Oil [Fish 1 cap PO BID 09/05/16 11/19/17 History Oil 1,000 mg Capsule] Omeprazole 20 mg PO HS 09/05/16 11/19/17 History Rivaroxaban [Xarelto] 20 mg PO HS 09/05/16 11/19/17 History Simvastatin [Zocor] 20 mg PO HS 09/05/16 11/19/17 History Vitamin E (Dl,Tocopheryl Acet) 400 unit PO BID 09/05/16 11/19/17 History [Vitamin E] Acetaminophen [Tylenol Extra 1,000 mg PO DAILY 05/05/17 11/19/17 History Strength] Indomethacin [Indocin] 50 mg PO HS 05/05/17 11/19/17 History Allergies Allergy/AdvReac Type Severity Reaction Status Date / Time azithromycin [From Zithromax] AdvReac Unknown Verified 11/19/17 12:19 ciprofloxacin [From Cipro] AdvReac Unknown Verified 11/19/17 12:19 clarithromycin [From Biaxin] AdvReac Unknown Verified 11/19/17 12:19 levofloxacin [From Levaquin] AdvReac Unknown Verified 11/19/17 12:19 sulfamethoxazole AdvReac Unknown Verified 11/19/17 12:19 [From Bactrim] trimethoprim [From Bactrim] AdvReac Unknown Verified 11/19/17 12:19 Surgical - Exam Vital Signs Temp Pulse Resp BP Pulse Ox 98.4 F 87 18 159/89 97 11/19/17 08:35 11/19/17 08:35 11/19/17 08:35 11/19/17 08:35 11/19/17 08:35 Physical exam: General: Well-developed, well-nourished HEENT: Normocephalic, sclerae nonicteric Abdomen: Obese hypertensive abdomen, mild right upper quadrant and epigastric tenderness, no palpable masses Extremities: No edema Neuro: Alert and oriented Results - Labs 11/19/17 08:53 11/19/17 08:53 Abnormal Lab Results - Last 24 Hours (Table) 11/19/17 11/19/17 11/19/17 Range/Units 08:53 08:53 12:15 WBC 16.6 H (3.8-10.6) k/uL Neutrophils # 14.7 H (1.3-7.7) k/uL Lymphocytes # 0.8 L (1.0-4.8) k/uL Creatinine 0.59 L (0.66-1.25) mg/dL Glucose 144 H (74-99) mg/dL Urine Protein 1+ H (Negative) Urine Ketones 1+ H (Negative) Urine Mucus Moderate H (None) /hpf Diabetes panel 11/19/17 Range/Units 08:53 Sodium 138 (137-145) mmol/L Potassium 4.6 (3.5-5.1) mmol/L Chloride 99 (98-107) mmol/L Carbon Dioxide 27 (22-30) mmol/L BUN 14 (9-20) mg/dL Creatinine 0.59 L (0.66-1.25) mg/dL Glucose 144 H (74-99) mg/dL Calcium 9.9 (8.4-10.2) mg/dL AST 43 (17-59) U/L ALT 54 (21-72) U/L Alkaline Phosphatase 69 (38-126) U/L Total Protein 7.4 (6.3-8.2) g/dL Albumin 4.3 (3.5-5.0) g/dL Calcium panel 11/19/17 Range/Units 08:53 Calcium 9.9 (8.4-10.2) mg/dL Albumin 4.3 (3.5-5.0) g/dL Pituitary panel 11/19/17 Range/Units 08:53 Sodium 138 (137-145) mmol/L Potassium 4.6 (3.5-5.1) mmol/L Chloride 99 (98-107) mmol/L Carbon Dioxide 27 (22-30) mmol/L BUN 14 (9-20) mg/dL Creatinine 0.59 L (0.66-1.25) mg/dL Glucose 144 H (74-99) mg/dL Calcium 9.9 (8.4-10.2) mg/dL Adrenal panel 11/19/17 Range/Units 08:53 Sodium 138 (137-145) mmol/L Potassium 4.6 (3.5-5.1) mmol/L Chloride 99 (98-107) mmol/L Carbon Dioxide 27 (22-30) mmol/L BUN 14 (9-20) mg/dL Creatinine 0.59 L (0.66-1.25) mg/dL Glucose 144 H (74-99) mg/dL Calcium 9.9 (8.4-10.2) mg/dL Total Bilirubin 1.2 (0.2-1.3) mg/dL AST 43 (17-59) U/L ALT 54 (21-72) U/L Alkaline Phosphatase 69 (38-126) U/L Total Protein 7.4 (6.3-8.2) g/dL Albumin 4.3 (3.5-5.0) g/dL Assessment and Plan (1) Acute cholecystitis Narrative/Plan: 62-year-old male with right upper quadrant abdominal pain and CAT scan and ultrasound findings demonstrating mild gallbladder wall thickening. No evidence of cholelithiasis. Patient took his last dose of Xarelto this morning. Ideally would wait 48 hours prior to surgical intervention. In the meanwhile will continue IV antibiotics. Continue bowel rest. Repeat labs tomorrow. We'll check HIDA scan in a.m. Agree with cardiac evaluation/ clearance. Patient is certainly higher than usual risk given the hypertensive abdomen. Further recommendations will follow. Current Visit: Yes Status: Acute Code(s): K81.0 - ACUTE CHOLECYSTITIS SNOMED Code(s): 20023261
--- NOTE | 2017-11-19 20:45 | HP ---
HISTORY AND PHYSICAL DATE OF ADMISSION: 11/19/2017 CHIEF COMPLAINT: Abdominal pain. This is a 62-year-old white male who was brought to the emergency room with severe abdominal pain. The patient was having this symptom since yesterday and it was progressively getting worse. He was not able to eat anything because of the pain and also because of loss of appetite. In the emergency room he had a CT of the abdomen which showed a thickened gallbladder and findings consistent with acute cholecystitis. He also had an ultrasound of the abdomen that showed hydropic gallbladder and the findings were consistent with acute cholecystitis. His CBC showed WBC count of 16.6, hemoglobin 15.7, platelet count 210,000, sodium 138, potassium 4.6, BUN 14, and creatinine 0.59. Liver enzymes within normal limits. Amylase 42, lipase 63. Urinalysis was essentially negative. Patient was admitted to the hospital for further evaluation and treatment. PAST MEDICAL HISTORY: Reveals that he has a longstanding history of hypertensive cardiovascular disease, coronary artery disease and atrial fibrillation, status post ablation treatment for atrial fibrillation. He also has a history of degenerative arthritis of multiple joints, hypertensive cardiovascular disease and hyperlipidemia. CURRENT MEDICATIONS: 1. Simvastatin 20 mg p.o. daily. 2. Xarelto 20 mg daily at bedtime. 3. Omeprazole 20 mg p.o. daily. 4. Vitamin D. 5. Multivitamin. 6. Magnesium chloride 64 mg p.o. b.i.d. 7. Zestril 20 mg p.o. b.i.d. 8. Indocin 50 mg p.o. daily. 9. Tikosyn 500 mg p.o. q.12 hours. 10.Atenolol 12.5 mg p.o. daily. 11.Aspirin 81 mg p.o. daily. 12.Extra-strength Tylenol p.r.n. ALLERGIES: 1. SULFA. 2. BACTRIM. 3. LEVAQUIN. 4. CIPRO. 5. ZITHROMAX. He does not smoke now. He was a smoker in the past. FAMILY HISTORY: Strongly positive for cancer and heart disease. REVIEW OF SYSTEMS: Patient denies any headache. Appetite was poor lately. He has no chest pain. He has no cough. He has had abdominal pain, as mentioned before. He has no polyuria or dysuria. He denies any diarrhea. He has no neurological symptoms. PHYSICAL EXAMINATION: Reveals a 62-year-old white male, morbidly obese. He is alert and oriented. There is no jaundice. There is no generalized lymphadenopathy. There are no petechiae or bruises. Pulse is 76 per minute, regular, temperature 98.4, respirations 18 per minute, blood pressure 159/89. EXAMINATION OF THE ENT: Negative. Neck is supple. There is no jugular venous distention. There is no goiter. There is no carotid bruit. Heart is in sinus rhythm. Lungs are clear to auscultation and percussion. ABDOMEN: Soft, but there is significant tenderness in the right upper abdomen. Examination of the lower extremities reveals no pitting edema. Neurologic examination does not reveal any localizing signs. IMPRESSION: 1. Severe upper abdominal pain and tenderness. 2. Acute cholecystitis. 3. History of hypertensive cardiovascular disease. 4. History of coronary artery disease and atrial fibrillation, status post cardiac catheterization and ablation therapy for atrial fibrillation. 5. Degenerative arthritis in multiple joints. 6. Hyperlipidemia. 7. Morbid obesity. PLAN: Patient will be admitted to hospital and he will get surgical consultation. Dr. Patterson has been consulted. Will also get cardiology consultation; Dr. Sawant has been consulted. The prognosis is guarded. The diagnosis, prognosis and therapeutic plans were discussed in detail with the patient. MMODL / IJN: [id number] /
[2017-11-19] MEDS: LISINOPRIL 20 MG TAB PO SCH (20:49)
[2017-11-19] MEDS: ATENOLOL 12.5 MG TAB PO SCH (20:50)
[2017-11-19] MEDS: DOFETILIDE 500 MCG CAP PO SCH (20:50)
[2017-11-19] MEDS: MORPHINE SULFATE 4 MG/ML SYRINGE IVP PRN (20:50)
[2017-11-20] MEDS: AMPICILLIN-SULBACTAM 3 GM in SODIUM CHLORIDE 0.9% 100 ML IVPB SCH ×4 (00:09→17:30)
[2017-11-20] MEDS: MORPHINE SULFATE 4 MG/ML SYRINGE IVP PRN ×2 (00:57→05:27)
[2017-11-20 07:23] LABS: Basophils % (A) 0 %; Eosinophils # (A) 0.1 k/uL (0-0.7); Eosinophils % (A) 1 %; HCT 46.3 % (39.0-53.0); HGB 15.1 gm/dL (13.0-17.5); Lymphocytes # (A) 0.9 k/uL (1.0-4.8); Lymphocytes % (A) 6 %; MCH 30.9 pg (25.0-35.0); MCHC 32.6 g/dL (31.0-37.0); MCV 94.9 fL (80.0-100.0); Mean Platelet Volume 7.7; Monocytes # (A) 0.9 k/uL (0-1.0); Monocytes % (A) 6 %; Neutrophils # (A) 14.1 k/uL (1.3-7.7); Neutrophils % (A) 87 %; Platelet Count 203 k/uL (150-450); RBC 4.87 m/uL (4.30-5.90); RDW 14.3 % (11.5-15.5); WBC 16.2 k/uL (3.8-10.6)
[2017-11-20 07:35] LABS: ALT 49 U/L (21-72); AST 38 U/L (17-59); Alkaline Phosphatase 70 U/L (38-126); Anion Gap 12 mmol/L; Blood Urea Nitrogen 8 mg/dL (9-20); Calcium 9.7 mg/dL (8.4-10.2); Carbon Dioxide 23 mmol/L (22-30); Chloride 104 mmol/L (98-107); Glucose 129 mg/dL (74-99); Potassium 4.2 mmol/L (3.5-5.1); Sodium 139 mmol/L (137-145); Total Bilirubin 1.6 mg/dL (0.2-1.3)
[2017-11-20] MEDS ORDERED: HUMAN PROTHROMBIN COMPLX 500 UNIT/16 ML VIAL IV ONE (08:12)
[2017-11-20] MEDS: LISINOPRIL 20 MG TAB PO SCH ×2 (08:29→20:48)
[2017-11-20] MEDS: DOFETILIDE 500 MCG CAP PO SCH ×2 (08:30→20:47)
--- NOTE | 2017-11-20 09:35 | P.PN ---
<Karlee Hay M - Last Filed: 11/20/17 09:25> Subjective Progress Note Date: 11/20/17 Pleasant 62-year-old male seen this morning sitting up in bed. Patient states he continues to have right upper quadrant abdominal pain with cramping sensation. Patient states he has not had a bowel movement in several days feels constipated. Is being followed by surgical service for CAT scan that showed some slight inflammatory changes at the gallbladder no gallstones were seen. It's noted the patient is on Xarelto for paroxysmal A. fib last dose a.m. November 19 white count this morning 16.2 total bili 1.6 AST and ALT nonelevated alk phos 70 amylase 42 lipase 63. Currently on Unasyn HIDA scan currently pending Objective - Vital Signs Vital signs: Vital Signs Temp 98.9 F 11/20/17 08:25 Pulse 91 11/20/17 07:09 Resp 16 11/20/17 07:09 BP 139/82 11/20/17 07:09 Pulse Ox 93 L 11/20/17 07:09 Intake & Output 11/19/17 11/20/17 11/20/17 18:59 06:59 18:59 Intake Total 300 Balance 300 Weight 167.829 kg Intake: Intake, IV Titration 300 Amount Sodium Chloride 0.9% 1, 300 000 ml @ 100 mls/hr IV . Q10H ONE Rx#:[id number] Other: Voiding Method Toilet Toilet # Voids 3 - Exam GENERAL APPEARANCE: 62-year-old patient is alert, oriented, in no acute distress. Sitting up in a chair VITAL SIGNS: Reviewed HEENT: Head is normocephalic and atraumatic. Pupils are equal and reactive. The nares are patent. Oropharynx is clear without lesions. NECK: Supple without lymphadenopathy. Traches midline. HEART: S1, S2. Regular rate and rhythm. Denying chest pain LUNGS: No crackles or wheezes are heard. Currently using CPAP for TRACEY ABDOMEN: Soft, obese mild tenderness to the right upper quadrant No peritoneal signs. No palpable organomegaly or masses. currently nothing by mouth reports no nausea vomiting this report feeling constipated less stool several days prior EXTREMITIES: Normal skin color and turgor. No cyanosis, rash, ulceration, clubbing or edema. Radial pedal pulses are 2/4 bilaterally. NEUROLOGICAL: No focal deficits. Strength and sensation are grossly intact. - Labs CBC & Chem 7: 11/20/17 06:35 11/20/17 06:35 Labs: Abnormal Lab Results - Last 24 Hours (Table) 11/19/17 11/19/17 11/20/17 Range/Units 08:53 12:15 06:35 WBC 16.2 H (3.8-10.6) k/uL Neutrophils # 14.1 H (1.3-7.7) k/uL Lymphocytes # 0.9 L (1.0-4.8) k/uL BUN (9-20) mg/dL Creatinine 0.59 L (0.66-1.25) mg/dL Glucose 144 H (74-99) mg/dL Total Bilirubin (0.2-1.3) mg/dL Urine Protein 1+ H (Negative) Urine Ketones 1+ H (Negative) Urine Mucus Moderate H (None) /hpf 11/20/17 Range/Units 06:35 WBC (3.8-10.6) k/uL Neutrophils # (1.3-7.7) k/uL Lymphocytes # (1.0-4.8) k/uL BUN 8 L (9-20) mg/dL Creatinine 0.53 L (0.66-1.25) mg/dL Glucose 129 H (74-99) mg/dL Total Bilirubin 1.6 H (0.2-1.3) mg/dL Urine Protein (Negative) Urine Ketones (Negative) Urine Mucus (None) /hpf Assessment and Plan Assessment: Impression Present on admission right upper quadrant abdominal pain with a CAT scan and ultrasound suggestive of mild gallbladder wall thickening no evidence of cholelithiasis History of paroxysmal atrial fibrillation on Xarelto Morbid obesity BMI 50 Plan Follow up on the HIDA scan currently pending IV Unasyn as ordered Pain control Keep nothing by mouth until HIDA scan results noted Continue to hold Xarelto ideally for 48 hours prior to surgical intervention Cardiac clearance pending DVT and GI prophylaxis The above impression and plan of care have been discussed and directed by signing physician. Karlee Hay nurse practitioner acting as scribe for signing physician. <Azeem Patterson - Last Filed: 11/20/17 18:02> Objective - Vital Signs Vital signs: Vital Signs Temp 99.5 F 11/20/17 17:15 Pulse 91 11/20/17 17:15 Resp 16 11/20/17 17:15 BP 100/79 11/20/17 17:15 Pulse Ox 94 L 11/20/17 17:15 Intake & Output 11/19/17 11/20/17 11/20/17 18:59 06:59 18:59 Intake Total 300 800 Balance 300 800 Weight 167.829 kg Intake: IV 800 Sodium Chloride 0.9% 1, 800 000 ml @ 100 mls/hr IV . Q10H ONE Rx#:[id number] Intake, IV Titration 300 Amount Sodium Chloride 0.9% 1, 300 000 ml @ 100 mls/hr IV . Q10H ONE Rx#:[id number] Other: Voiding Method Toilet Toilet # Voids 3 2 - Labs CBC & Chem 7: 11/20/17 06:35 11/20/17 06:35 Labs: Abnormal Lab Results - Last 24 Hours (Table) 11/20/17 11/20/17 Range/Units 06:35 06:35 WBC 16.2 H (3.8-10.6) k/uL Neutrophils # 14.1 H (1.3-7.7) k/uL Lymphocytes # 0.9 L (1.0-4.8) k/uL BUN 8 L (9-20) mg/dL Creatinine 0.53 L (0.66-1.25) mg/dL Glucose 129 H (74-99) mg/dL Total Bilirubin 1.6 H (0.2-1.3) mg/dL Assessment and Plan Assessment: Patient is still having abdominal pains morning. HIDA scan shows nonvisualization of the gallbladder. Speaking with the patient's his last dose of Zaroxolyn was actually Thursday evening and night yesterday morning. Options discussed with the patient and his . We'll proceed with laparoscopic, possible open cholecystectomy this evening. Risks of bleeding, infection, trocar-related injury, bile leak, bile duct injury, retained common bile duct stone, conversion to an open procedure, and anesthesia-related complications were discussed. Patient understands and wishes to proceed. (1) Acute cholecystitis Current Visit: Yes Status: Acute Code(s): K81.0 - ACUTE CHOLECYSTITIS SNOMED Code(s): 31404656
--- NOTE | 2017-11-20 10:01 | ECHOF ---
Referral Reason:pre-op clearance MEASUREMENTS -------- HEIGHT: 182.9 cm WEIGHT: 167.8 kg BP: 159/89 RVIDd: 3.9 cm (< 3.3) IVSd: 1.9 cm (0.6 - 1.1) LVIDd: 3.2 cm (3.9 - 5.3) LVPWd: 1.7 cm (0.6 - 1.1) IVSs: 2.1 cm LVIDs: 2.7 cm LVPWs: 2.1 cm LA Diam: 3.8 cm (2.7 - 3.8) LAESV Index (A-L): 32.89 ml/m Ao Diam: 4.1 cm (2.0 - 3.7) AV Cusp: 2.5 cm (1.5 - 2.6) MV EXCURSION: 17.180 mm (> 18.000) MV EF SLOPE: 124 mm/s (70 - 150) EPSS: 1.0 cm MV E Octavio: 0.90 m/s MV DecT: 226 ms MV A Octavio: 0.67 m/s MV E/A Ratio: 1.34 AV maxP.23 mmHg AV meanP.12 mmHg FINDINGS -------- Sinus rhythm. This was a technically difficult study with suboptimal views. The left ventricular size is normal. There is severe concentric left ventricular hypertrophy. Ove rall left ventricular systolic function is normal with, an EF between 60 - 65 %. The right ventricle is mild to moderately enlarged. LA is midly dilated 29-33ml/m2. The right atrium was not well visualized. 5 ml of Lumason was utilized for enhancement of images. The aortic valve was not well visualized. Mild mitral annular calcification present. The tricuspid valve was not well visualized. The pulmonic valve was not well visualized. The aortic root is dilated measuring 4.1cm. IVC Not well visulized. There is no pericardial effusion. CONCLUSIONS -------- 1. Sinus rhythm. 2. This was a technically difficult study with suboptimal views. 3. The left ventricular size is normal. 4. There is severe concentric left ventricular hypertrophy. 5. Overall left ventricular systolic function is normal with, an EF between 60 - 65 %. 6. The right ventricle is mild to moderately enlarged. 7. LA is midly dilated 29-33ml/m2. 8. The right atrium was not well visualized. 9. 5 ml of Lumason was utilized for enhancement of images. 10. The aortic valve was not well visualized. 11. Mild mitral annular calcification present. 12. The tricuspid valve was not well visualized. 13. The pulmonic valve was not well visualized. 14. The aortic root is dilated measuring 4.1cm. 15. IVC Not well visulized. 16. There is no pericardial effusion. CANDLE WICKER: Michelle Keane RDCS
[2017-11-20] MEDS ORDERED: ONDANSETRON 4 MG/2 ML VIAL IVP ONE (10:12)
--- NOTE | 2017-11-20 10:36 | P.CRDCN ---
History of Present Illness History of present illness: Mr. 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 He follows with Dr. Sawant in the office. We have been asked to see him in consultation for pre-operative evaluation. He presented to the hospital with symptoms of abdominal pain. CT revealed hydropic gallbladder. U/S gallbladder showed thickened gallbladder wall. He is scheduled for a HIDA scan today. He denies chest pain, shortness of breath, nausea, vomiting, diaphoresis, dizziness or palpitations. No EKG on admission to review. Laboratory data reviewed, to be VC 16.2, hemoglobin 15.1, platelets 203, sodium 139, potassium 4.2, creatinine 0.53. Current cardiac medications include tikosyn 500 g twice a day, Xarelto 20 mg daily, simvastatin 20 mg daily, lisinopril 20 mg twice a day, atenolol 12.5 mg daily and aspirin 81 mg daily. His last dose of Xarelto was yesterday morning. Echocardiogram reveals preserved left ventricular systolic function with ejection fraction 60-65%, mildly dilated left atrium. Review of Systems At the time of my exam: CONSTITUTIONAL: Denies fever. Denies chills. EYES: Denies blurred vision. Denies vision changes. Denies eye pain. EARS, NOSE, MOUTH & THROAT: Denies headache. Denies sore throat. Denies ear pain. CARDIOVASCULAR: Denies chest pain. Denies shortness of breath. Denies orthopnea. Denies PND. Denies palpitations. RESPIRATORY: Denies cough. GASTROINTESTINAL: Complains of abdominal pain. Denies diarrhea. Denies constipation. Denies nausea. Denies vomiting. MUSCULOSKELETAL: Denies myalgias. INTEGUMENTARY: Denies pruitis. Denies rash. NEUROLOGIC: Denies numbness. Denies tingling. Denies weakness. PSYCHIATRIC: Denies anxiety. Denies depression. ENDOCRINE: Denies fatigue. Denies weight change. Denies polydipsia. Denies polyurina. GENITOURINARY: Denies burning, hematuria or urgency with micturation. HEMATOLOGIC: Denies history of anemia. Denies bleeding. Past Medical History Past Medical History: Atrial Fibrillation, Coronary Artery Disease (CAD), GERD/ Reflux, Hyperlipidemia, Hypertension, Osteoarthritis (OA), Sleep Apnea/CPAP/ BIPAP Additional Past Medical History / Comment(s): "enlarged heart", beginning of cataracts domonique eyes, past cellulits lt testical and uti-ecoli 02-28-17. use3s cpap machine for liz. History of Any Multi-Drug Resistant Organisms: None Reported Past Surgical History: Heart Catheterization Additional Past Surgical History / Comment(s): cardiac ablation,cardioversion, ep studies left eardrum surgery , rt knee arthroscopy Past Anesthesia/Blood Transfusion Reactions: No Reported Reaction Smoking Status: Former smoker - Past Family History Mother Family Medical History: Cancer Additional Family Medical History / Comment(s): colon cancer Sister(s) Additional Family Medical History / Comment(s): brain cancer Father Family Medical History: Cancer Additional Family Medical History / Comment(s): bladder cancer Brother(s) Additional Family Medical History / Comment(s): MS Medications and Allergies Home Medications Medication Instructions Recorded Confirmed Type Aspirin EC [Ecotrin Low Dose] 81 mg PO DAILY 09/05/16 11/19/17 History Atenolol [Tenormin] 12.5 mg PO HS 09/05/16 11/19/17 History Cholecalciferol [Vitamin D3] 5,000 unit PO DAILY 09/05/16 11/19/17 History Dofetilide [Tikosyn] 500 mcg PO Q12HR 09/05/16 11/19/17 History Kaylynn C 1 tab PO BID 09/05/16 11/19/17 History Lisinopril [Zestril] 20 mg PO BID 09/05/16 11/19/17 History Magnesium Chloride [Slow-Mag] 64 mg PO BID 09/05/16 11/19/17 History Multivitamins, Thera [Multivitamin 1 tab PO HS 09/05/16 11/19/17 History (formulary)] Elliott-3 Fatty Acids/Fish Oil [Fish 1 cap PO BID 09/05/16 11/19/17 History Oil 1,000 mg Capsule] Omeprazole 20 mg PO HS 09/05/16 11/19/17 History Rivaroxaban [Xarelto] 20 mg PO HS 09/05/16 11/19/17 History Simvastatin [Zocor] 20 mg PO HS 09/05/16 11/19/17 History Vitamin E (Dl,Tocopheryl Acet) 400 unit PO BID 09/05/16 11/19/17 History [Vitamin E] Acetaminophen [Tylenol Extra 1,000 mg PO DAILY 05/05/17 11/19/17 History Strength] Indomethacin [Indocin] 50 mg PO HS 05/05/17 11/19/17 History Allergies Allergy/AdvReac Type Severity Reaction Status Date / Time azithromycin [From Zithromax] AdvReac Unknown Verified 11/19/17 12:19 ciprofloxacin [From Cipro] AdvReac Unknown Verified 11/19/17 12:19 clarithromycin [From Biaxin] AdvReac Unknown Verified 11/19/17 12:19 levofloxacin [From Levaquin] AdvReac Unknown Verified 11/19/17 12:19 sulfamethoxazole AdvReac Unknown Verified 11/19/17 12:19 [From Bactrim] trimethoprim [From Bactrim] AdvReac Unknown Verified 11/19/17 12:19 Physical Exam Vitals: Vital Signs Temp Pulse Resp BP Pulse Ox 11/20/17 08:25 98.9 F 11/20/17 08:20 100.0 F H 11/20/17 07:09 99.0 F 91 16 139/82 93 L 11/20/17 04:00 84 16 11/20/17 00:26 98.7 F 84 16 129/72 92 L 11/20/17 00:00 84 16 11/19/17 20:00 98.1 F 84 16 148/82 94 L 11/19/17 17:18 97.8 F 86 20 113/81 97 Intake and Output 11/19/17 11/20/17 11/20/17 22:59 06:59 14:59 Intake Total 300 Balance 300 Intake: Intake, IV Titration 300 Amount Sodium Chloride 0.9% 1, 300 000 ml @ 100 mls/hr IV . Q10H ONE Rx#:[id number] Other: Voiding Method Toilet Toilet Toilet # Voids 3 Blood pressure 139/82 heart rate 91 temperature 100F maintaining oxygen saturation on room air GENERAL: This is a 62-year-old male in no apparent distress at the time of my examination. Morbidly obese. HEENT: Head is atraumatic, normocephalic. Pupils are equal, round. Sclerae anicteric. Conjunctivae are clear. Mucous membranes of the mouth are moist. Neck is supple. There is no jugular venous distention. No carotid bruit is heard. LUNGS: Clear to auscultation no wheezes, rales or rhonchi. No chest wall tenderness is noted on palpation or with deep breathing. HEART: Regular rate and rhythm without murmurs, rubs or gallops. S1 and S2 heard. ABDOMEN: Soft, mildly tender. Bowel sounds are heard. No organomegaly noted. EXTREMITIES: Trace bilateral lower extremity nonpitting edema and no calf tenderness noted. VASCULAR: Radial and dorsalis pedis pulses palpated, no evidence of clubbing. NEUROLOGIC: Patient is awake, alert and oriented x3. Results 11/20/17 06:35 11/20/17 06:35 Cardiac Enzymes 11/19/17 11/20/17 Range/Units 08:53 06:35 AST 43 38 (17-59) U/L CBC 11/19/17 11/20/17 Range/Units 08:53 06:35 WBC 16.6 H 16.2 H (3.8-10.6) k/uL RBC 5.05 4.87 (4.30-5.90) m/uL Hgb 15.7 15.1 (13.0-17.5) gm/dL Hct 48.1 46.3 (39.0-53.0) % Plt Count 210 203 (150-450) k/uL Comprehensive Metabolic Panel 11/19/17 11/20/17 Range/Units 08:53 06:35 Sodium 138 139 (137-145) mmol/L Potassium 4.6 4.2 (3.5-5.1) mmol/L Chloride 99 104 (98-107) mmol/L Carbon Dioxide 27 23 (22-30) mmol/L BUN 14 8 L (9-20) mg/dL Creatinine 0.59 L 0.53 L (0.66-1.25) mg/dL Glucose 144 H 129 H (74-99) mg/dL Calcium 9.9 9.7 (8.4-10.2) mg/dL AST 43 38 (17-59) U/L ALT 54 49 (21-72) U/L Alkaline Phosphatase 69 70 (38-126) U/L Total Protein 7.4 7.0 (6.3-8.2) g/dL Albumin 4.3 4.0 (3.5-5.0) g/dL Current Medications Generic Name Dose Route Start Last Admin Trade Name Freq PRN Reason Stop Dose Admin Atenolol 12.5 mg 11/19/17 21:00 11/19/17 20:50 Tenormin PO 12.5 mg HS JANNA Administration Dofetilide 500 mcg 11/19/17 21:00 11/20/17 08:30 Tikosyn PO 500 mcg Q12HR@0900,2100 JANNA Administration Ampicillin Sodium/Sulbactam 100 mls @ 100 mls/hr 11/20/17 00:00 11/20/17 05: 27 Sodium 3 gm/ Sodium Chloride IVPB 100 mls/hr Q6HR JANNA Administration Lisinopril 20 mg 11/19/17 21:00 11/20/17 08:29 Zestril PO 20 mg BID JANNA Administration Morphine Sulfate 4 mg 11/19/17 15:43 11/20/17 05:27 Morphine Sulfate (Inj) IVP 4 mg Q4HR PRN Administration Pain Ondansetron HCl 4 mg 11/19/17 15:43 Zofran IVP Q6HR PRN Nausea And Vomiting Intake and Output 11/19/17 11/20/17 11/20/17 22:59 06:59 14:59 Intake Total 300 Balance 300 Intake: Intake, IV Titration 300 Amount Sodium Chloride 0.9% 1, 300 000 ml @ 100 mls/hr IV . Q10H ONE Rx#:[id number] Other: Voiding Method Toilet Toilet Toilet # Voids 3 11/20/17 06:35 11/20/17 06:35 Assessment and Plan Assessment: ASSESSMENT Abdominal pain with thickened gallbladder wall, awaiting HIDA scan Febrile illness Leukocytosis Paroxysmal atrial fibrillation on assisted anticoagulation and tikosyn, currently maintaining sinus mechanism History of stable non-obstructive coronary artery disease Hypertension Dyslipidemia Obstructive sleep apnea Morbid obesity PLAN Obtain baseline EKG. No evidence of overt heart failure, no anginal symptoms noted. Stable from a cardiac perspective. Hold Xarelto for 24-48 hours prior to surgical intervention. Imperative to continue with tikosyn and beta blockers around the clock as ordered. Acceptable risk for surgical intervention. Will continue to follow post-operatively. Thank you kindly for this consultation. Nurse Practitioner note has been reviewed, I agree with a documented findings and plan of care. Patient was seen and examined.
--- NOTE | 2017-11-20 14:37 | PN ---
PROGRESS NOTE DATE OF SERVICE: 11/20/2017 This is a 62-year-old white male who was brought to the emergency room with severe upper abdominal pain and he was evaluated in the ER and was found to have acute cholecystitis. The ultrasound findings and the CT scan findings were consistent with acute cholecystitis. Patient was admitted for further evaluation and treatment. He also has history of cardiac arrhythmias, atrial fibrillation, and he has got ablation therapy for the atrial fibrillation. Patient had been put back on his cardiac medication, especially Tikosyn. Patient was seen by Dr. Patterson in consultation and patient was scheduled for a HIDA scan of the gallbladder and patient and Dr. Patterson following the patient and patient also has been on Xarelto that has been discontinued today and Dr. Patterson is planning to do surgery after the HIDA scan. 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 His vital signs are stable. He denies any chest pain or shortness of breath. Will continue current medication. MMODL / IJN: [id number] /
--- NOTE | 2017-11-20 15:47 | NM ---
"EXAMINATION TYPE: NM hepatobiliary wo EF DATE OF EXAM: 11/20/2017 COMPARISON: CT abdomen and pelvis the gallbladder ultrasound from yesterday. HISTORY: Abnormal CT and ultrasound. History of pain not further specified. TECHNIQUE: After the intravenous administration of 5.44 mCi Tc 99m Mebrofenin hepatobiliary scintigra phy is performed. Immediate images post injection. FINDINGS: There is satisfactory initial accumulation of tracer by the liver. The gallbladder is never visualiz ed even after 90 minutes. The small bowel activity is noted within 20 minutes. At 90 minutes radiotr acer is essentially cleared from liver. IMPRESSION: Nonvisualization of gallbladder would support diagnosis of acute cholecystitis. A [place] level critical message alert has been initiated for Azeem Patterson MD via the [employer] 36 0 | Critical Results System on 11/20/2017 3:44 PM. This message alert has been sent to Azeem Patterson MD via the preferences provided by the clinician for the receipt of Radiology Critical Findings. Mess age ID [id number]."
[2017-11-20] MEDS ORDERED: Kcentra PER PHARMACY 1 EACH MISC MISCELLANE PRN (16:06)
[2017-11-20] MEDS ORDERED: HUMAN PROTHROMBIN COMPLX IV ONE (19:30)
[2017-11-20] MEDS: ATENOLOL 12.5 MG TAB PO SCH (20:47)
[2017-11-20] MEDS ORDERED: IV FLUID CONTINUATION 1,000 ML IV ONE (22:15)
[2017-11-20] MEDS ORDERED: SUCCINYLCHOLINE CHLORIDE VIAL 200 MG/10 ML VIAL IV ONE (22:59)
[2017-11-20] MEDS ORDERED: NEOSTIGMINE 1 MG/ML 10 ML VIAL ONE (22:59)
[2017-11-20] MEDS ORDERED: fentaNYL (PF) 50 MCG/ML 2 ML AMP ONE (22:59)
[2017-11-20] MEDS ORDERED: GLYCOPYRROLATE 0.2 MG/ML 2 ML VIAL ONE (22:59)
[2017-11-20] MEDS ORDERED: MIDAZOLAM 2 MG/2 ML VIAL ONE (22:59)
[2017-11-20] MEDS ORDERED: ROCURONIUM BROMIDE 10 MG/ML 10 ML VIAL IV ONE (22:59)
[2017-11-20] MEDS ORDERED: PROPOFOL 10 MG/ML 20 ML VIAL IV ONE (22:59)
[2017-11-20] MEDS ORDERED: LIDOCAINE 1% INJ 10MG/ML (20 ML MDV) ONE (22:59)
[2017-11-20] MEDS ORDERED: BUPIVACAIN-EPI 0.25%-1:200,000 30 ML VIAL IJ ONE (23:23)
[2017-11-20] MEDS ORDERED: SODIUM CHLORIDE 0.9% 50 ML with ceFAZolin 3,000 MG IV ONE ×2 (23:23)
[2017-11-20] MEDS ORDERED: LACTATED RINGERS 1,000 ML IV ONE (23:34)
[2017-11-21] MEDS ORDERED: PHYSOSTIGMINE SALICYLATE 1 MG/ML 2 ML AMP IVP ONE (00:44)
--- NOTE | 2017-11-21 00:44 | P.OP ---
Date of Procedure: 11/21/17 Procedure(s) Performed: PREOPERATIVE DIAGNOSIS: Acute cholecystitis POSTOPERATIVE DIAGNOSIS: Gangrenous cholecystitis with perforation PROCEDURE: Laparoscopic cholecystectomy SURGEON: Leonardo EBL: Minimal see anesthesia record ANESTHESIA: Gen. COMPLICATIONS: None OPERATIVE PROCEDURE: The patient was brought and placed on the operating room table in the supine position. The patient was placed under general anesthesia at that time. The abdomen was prepped and draped in the usual sterile fashion. A small horizontal right periumbilical incision was made. Entrance into the perineal cavity took place using the optical 5 mm trocar. We were somewhat cephalad to the umbilicus as well. The 30 angled scope was utilized. Full insufflation took place up to 15 mmHg. 2 additional 5 mm trochars were placed in the right upper quadrant under direct visualization. A 10 mm trocar was advanced into the epigastric incision site. This was later switched to a 12 mm trocar for the larger clip size. The omentum was retracted inferiorly. As soon as we did that we identified a gangrenous gallbladder with some bile surrounding it. This was evacuated. I did make a small opening in the fundus of the gallbladder and the contents were evacuated using the suction device. The gallbladder was then retracted superiorly and laterally. The peritoneum overlying the infundibulum was bluntly dissected. First a small vessel was identified and clipped using the 12 no matter clipper. Next a more appropriate sized cystic artery was identified and dissected. Adjacent to this was the cystic duct. The cystic artery was first divided using 12 mm clips. The cystic duct was inspected. This appeared to be fairly short. Unfortunately there were gangrenous changes involving the cystic duct as well. A 2-0 Ethibond stitch was used to ligate the cystic duct and this was tied down using the tie knot device. An additional 12 mm clip was also placed on the patient's side. The cystic duct was divided at that time. There were small stones present at the specimen side of the cystic duct which were evacuated. A small vessel was seen along the gallbladder fossa and clipped as well. The gallbladder was then removed from the liver bed using electrocautery and blunt dissection. Small areas of bleeding were controlled using electrocautery. The gallbladder was then removed from the epigastric trocar site with an Endo Catch bag. The gallbladder fossa was irrigated with saline. There was no evidence of any bleeding or biliary drainage seen. A 19-Bolivian channel drain was placed in the gallbladder fossa exiting through the most lateral 5 mm trocar site. This was sutured in place using a 3-0 silk stitch. The 12 mm trocar fascia site was closed using [id number] 0 Ethibond sutures using the Johnnie- Gela technique. The suture passer on one of our passes caught a small arterial bleed which was controlled after tying the stitch down. I placed an additional [id number] stitch outside of this for even better closure of that site. No bleeding was seen at this point. The skin at all 4 sites was closed using a 4-0 Monocryl stitch. At the end of this procedure the sponge and needle counts were correct. DISPOSITION: Stable to the recovery room
[2017-11-21] MEDS: AMPICILLIN-SULBACTAM 3 GM in SODIUM CHLORIDE 0.9% 100 ML IVPB SCH ×4 (02:07→19:48)
[2017-11-21] MEDS: MORPHINE SULFATE 4 MG/ML SYRINGE IVP PRN ×4 (02:08→19:50)
[2017-11-21] MEDS: HYDROcodone/APAP 5-325MG 1 EACH TAB PO PRN ×4 (04:55→19:46)
[2017-11-21 08:22] LABS: ALT 54 U/L (21-72); AST 70 U/L (17-59); Albumin 3.3 g/dL (3.5-5.0); Alkaline Phosphatase 66 U/L (38-126); Anion Gap 9 mmol/L; Blood Urea Nitrogen 11 mg/dL (9-20); Calcium 9.2 mg/dL (8.4-10.2); Carbon Dioxide 23 mmol/L (22-30); Chloride 106 mmol/L (98-107); Glucose 103 mg/dL (74-99); Potassium 4.2 mmol/L (3.5-5.1); Sodium 138 mmol/L (137-145); Total Bilirubin 1.3 mg/dL (0.2-1.3); Total Protein 6.3 g/dL (6.3-8.2)
[2017-11-21] MEDS: DOFETILIDE 500 MCG CAP PO SCH ×2 (08:39→21:48)
[2017-11-21] MEDS: LISINOPRIL 20 MG TAB PO SCH ×2 (08:39→21:48)
[2017-11-21 08:54] LABS: Basophils % (A) 0 %; Eosinophils # (A) 0.2 k/uL (0-0.7); Eosinophils % (A) 1 %; HCT 42.4 % (39.0-53.0); Lymphocytes # (A) 1.1 k/uL (1.0-4.8); Lymphocytes % (A) 10 %; MCH 31.8 pg (25.0-35.0); MCV 96.2 fL (80.0-100.0); Mean Platelet Volume 8.2; Monocytes # (A) 0.7 k/uL (0-1.0); Monocytes % (A) 7 %; Neutrophils # (A) 9.2 k/uL (1.3-7.7); Neutrophils % (A) 81 %; Platelet Count 177 k/uL (150-450); RBC 4.41 m/uL (4.30-5.90); RDW 14.6 % (11.5-15.5); WBC 11.3 k/uL (3.8-10.6)
--- NOTE | 2017-11-21 10:13 | P.PN ---
Progress Note - Text Progress Note Date: 11/21/17 The patient is status post laparoscopic cholecystectomy for acute: Cholecystitis. His CRISS drain has some serosanguineous drainage. On exam his vital signs are stable. His abdomen is soft obese. There is some minimal tenderness. Status post laparoscopic cholecystectomy for acute: Cholecystitis. Patient be discharged home in the a.m.
--- NOTE | 2017-11-21 10:25 | PN ---
PROGRESS NOTE This patient underwent a cholecystectomy, patient had a gangrenous cholecystitis. Patient is doing fairly well. He is comfortable. No respiratory distress is noted. No chest pain is noted. Patient remains in normal sinus rhythm. First and second heart sounds are normal. Lungs are clear to auscultation and percussion. Patient's atenolol and Tikosyn is resumed. We will resume the Xarelto when it is okay with Dr. Patterson. MMODL / IJN: [id number] /
[2017-11-21] MEDS: ATENOLOL 12.5 MG TAB PO SCH (21:48)
--- NOTE | 2017-11-21 22:14 | PN ---
PROGRESS NOTE DATE OF SERVICE: 11/21/2017 This is a 62-year-old white male was brought to the emergency room with severe right upper abdominal pain and his CT scan, ultrasound and HIDA scan where all consistent with acute cholecystitis and the patient was seen by Dr. Patterson in consultation and he had a laparoscopic cholecystectomy on 11/20/2017 and apparently patient tolerated the procedure well and postoperatively the vital signs are stable. He was seen by [facility] in consultation prior to surgery and the patient has been on Xarelto and this was being held and welding technician has recommended starting him back on Xarelto by tomorrow. His vital signs are stable. Heart is in sinus rhythm. Lungs are clear. There is no acute cardio or respiratory problems. The patient currently being followed by Dr. Patterson for the postoperative care. The patient may be discharged when it is okay with Dr. Patterson. Prognosis is guarded. MMODL / IJN: [id number] /
[2017-11-22] MEDS: MORPHINE SULFATE 4 MG/ML SYRINGE IVP PRN ×2 (00:29→05:29)
[2017-11-22] MEDS: HYDROcodone/APAP 5-325MG 1 EACH TAB PO PRN ×3 (00:30→11:51)
[2017-11-22] MEDS: AMPICILLIN-SULBACTAM 3 GM in SODIUM CHLORIDE 0.9% 100 ML IVPB SCH ×3 (00:54→11:51)
[2017-11-22 07:43] LABS: Basophils % (A) 0 %; Eosinophils # (A) 0.4 k/uL (0-0.7); Eosinophils % (A) 5 %; HCT 41.8 % (39.0-53.0); HGB 14.4 gm/dL (13.0-17.5); Lymphocytes # (A) 1.1 k/uL (1.0-4.8); Lymphocytes % (A) 13 %; MCH 32.3 pg (25.0-35.0); MCHC 34.4 g/dL (31.0-37.0); MCV 93.8 fL (80.0-100.0); Mean Platelet Volume 9.1; Monocytes # (A) 0.5 k/uL (0-1.0); Monocytes % (A) 6 %; Neutrophils # (A) 6.6 k/uL (1.3-7.7); Neutrophils % (A) 75 %; Platelet Count 199 k/uL (150-450); RBC 4.46 m/uL (4.30-5.90); RDW 14.2 % (11.5-15.5); WBC 8.8 k/uL (3.8-10.6)
[2017-11-22 08:39] LABS: Albumin 3.5 g/dL (3.5-5.0); Anion Gap 10 mmol/L; Calcium 8.8 mg/dL (8.4-10.2); Carbon Dioxide 23 mmol/L (22-30); Chloride 105 mmol/L (98-107); Glucose 93 mg/dL (74-99); Sodium 138 mmol/L (137-145); Total Bilirubin 1.3 mg/dL (0.2-1.3); Total Protein 6.7 g/dL (6.3-8.2)
[2017-11-22 08:41] LABS: ALT 59 U/L (21-72); AST 72 U/L (17-59); Alkaline Phosphatase 70 U/L (38-126); Blood Urea Nitrogen 10 mg/dL (9-20)
[2017-11-22] MEDS: LISINOPRIL 20 MG TAB PO SCH (09:43)
[2017-11-22] MEDS: DOFETILIDE 500 MCG CAP PO SCH (09:44)
--- NOTE | 2017-11-22 12:41 | P.DS ---
Providers Date of admission: 11/20/17 08:03 Expected date of discharge: 11/22/17 Attending physician: Guevara Simeon Consults: 11/19/17 15:41 Consult Physician Routine Consulting Provider: Azeem Patterson Consult Reason/Comments: lewis Do you want consulting provider notified?: Yes 11/19/17 16:33 Consult Physician Routine Consulting Provider: Anu Leon Consult Reason/Comments: cardiac clearance Do you want consulting provider notified?: Yes Primary care physician: Guevara Simeon [place] Hospital Course: This a 62-year-old male who underwent laparoscopic cholecystectomy Dr. Mckenna. Please see hospital chart for details. Procedures: Laparoscopic cholecystectomy Patient Condition at Discharge: Good Plan - Discharge Summary Discharge Rx Participant: Yes New Discharge Prescriptions: New Docusate [Colace] 100 mg PO BID #20 capsule HYDROcodone/APAP 7.5-325MG [Burt 7.5-325] 1 tab PO Q4H PRN 3 Days #18 tab PRN Reason: Pain No Action Rivaroxaban [Xarelto] 20 mg PO HS Dofetilide [Tikosyn] 500 mcg PO Q12HR Simvastatin [Zocor] 20 mg PO HS Omeprazole 20 mg PO HS Lisinopril [Zestril] 20 mg PO BID Atenolol [Tenormin] 12.5 mg PO HS Vitamin E (Dl,Tocopheryl Acet) [Vitamin E] 400 unit PO BID Magnesium Chloride [Slow-Mag] 64 mg PO BID Cholecalciferol [Vitamin D3] 5,000 unit PO DAILY [place]-3 Fatty Acids/Fish Oil [Fish Oil 1,000 mg Capsule] 1 cap PO BID Multivitamins, Thera [Multivitamin (formulary)] 1 tab PO HS Aspirin EC [Ecotrin Low Dose] 81 mg PO DAILY Kaylynn C 1 tab PO BID Indomethacin [Indocin] 50 mg PO HS Acetaminophen [Tylenol Extra Strength] 1,000 mg PO DAILY Discharge Medication List Aspirin EC [Ecotrin Low Dose] 81 mg PO DAILY 09/05/16 [History] Atenolol [Tenormin] 12.5 mg PO HS 09/05/16 [History] Cholecalciferol [Vitamin D3] 5,000 unit PO DAILY 09/05/16 [History] Dofetilide [Tikosyn] 500 mcg PO Q12HR 09/05/16 [History] Kaylynn C 1 tab PO BID 09/05/16 [History] Lisinopril [Zestril] 20 mg PO BID 09/05/16 [History] Magnesium Chloride [Slow-Mag] 64 mg PO BID 09/05/16 [History] Multivitamins, Thera [Multivitamin (formulary)] 1 tab PO HS 09/05/16 [History] [place]-3 Fatty Acids/Fish Oil [Fish Oil 1,000 mg Capsule] 1 cap PO BID 09/05/16 [ History] Omeprazole 20 mg PO HS 09/05/16 [History] Rivaroxaban [Xarelto] 20 mg PO HS 09/05/16 [History] Simvastatin [Zocor] 20 mg PO HS 09/05/16 [History] Vitamin E (Dl,Tocopheryl Acet) [Vitamin E] 400 unit PO BID 09/05/16 [History] Acetaminophen [Tylenol Extra Strength] 1,000 mg PO DAILY 05/05/17 [History] Indomethacin [Indocin] 50 mg PO HS 05/05/17 [History] Docusate [Colace] 100 mg PO BID #20 capsule 11/22/17 [Rx] HYDROcodone/APAP 7.5-325MG [Burt 7.5-325] 1 tab PO Q4H PRN 3 Days #18 tab 11/22 [Rx] Follow up Appointment(s)/Referral(s): Guevara Simeon MD [Primary Care Provider] - 1-2 days Discharge Disposition: HOME SELF-CARE
[2017-11-22 15:19] VITALS: BP 126/76; PULSE 85; RESP 16; TEMP 98.7
--- NOTE | 2017-11-22 16:37 | PN ---
PROGRESS NOTE DATE OF SERVICE: 11/22/2017. HISTORY OF PRESENT ILLNESS: This is a 62-year-old male who was brought to the emergency room with severe upper abdominal pain and he was found to have acute cholecystitis and he had laparoscopic cholecystectomy by Dr. Patterson and patient also has a history of atrial fibrillation in the past and he has a cardiac ablation therapy and the patient has been on Xarelto and this was discontinued prior to surgery. Postoperatively, patient is recovering without any complications. His vital signs are stable and Cardiology saw the patient today and according to them, the patient can be started back on Xarelto when okayed by Dr. Patterson. The patient also recovering from surgery well and he can be discharged home whenever it is okay with Dr. Patterson. He will be following with me and the heel seat trimmer. He will be seen in my office for followup in about 2 weeks. MMDOROTEO / ISAIAS: [id number] /
--- NOTE | 2017-11-22 17:45 | PN ---
PROGRESS NOTE Mr. Sinha is status post cholecystectomy. He is clinically doing better today and there is a possibility he may be discharged. He does use a CPAP on a regular basis. His vital signs are stable. Denies chest pain. S1, S2 heard normally but distantly. Lungs reveal decent air entry. Abdomen exam was deferred. Lower extremities reveal diminished pulses, trace edema. Central nervous system is grossly within normal limits. I am recommending that from a cardiac standpoint he can be discharged and follow up with his primary care physician and over short and damage clerk. He should have his Xarelto resumed and this will be by the surgeon who will recommend as to when the Xarelto should be resumed. I spoke to the nurse in this regard and she will communicate with Dr. Patterson or Dr. Hernandez who is rounding for him. MMODL / IJN: [id number] /
== END 2017-11-22 16:48 | disposition home or self-care (01) | DRG 417 ==
LOC: EC 08:14 → 3SUR 15:42 → OBSVTOIN 11-20 08:03
PROVIDERS: ADMIT Internal Medicine; ATTEND Internal Medicine
PROC: 5A09457 Assistance with Respiratory Ventilation, 24-96 Consecutive Hours, Continuous Positive Airway Pressure (ICD-10-PCS; 2017-11-19)
PROC: 0FT44ZZ Resection of Gallbladder, Percutaneous Endoscopic Approach (ICD-10-PCS; 2017-11-20)
PROC: 0FC84ZZ Extirpation of Matter from Cystic Duct, Percutaneous Endoscopic Approach (ICD-10-PCS; 2017-11-20)
PROC: 0FT44ZZ Resection of Gallbladder, Percutaneous Endoscopic Approach (ICD-10-PCS; principal; 2017-11-20 23:00)
DX: K80.42 Calculus of bile duct with acute cholecystitis without obstruction (principal); K82.2 Perforation of gallbladder; K82.1 Hydrops of gallbladder; Z68.43 Body mass index [BMI] 50.0-59.9, adult; E66.01 Morbid (severe) obesity due to excess calories; I11.9 Hypertensive heart disease without heart failure; I48.0 Paroxysmal atrial fibrillation; I25.10 Atherosclerotic heart disease of native coronary artery without angina pectoris; K21.9 Gastro-esophageal reflux disease without esophagitis; E78.5 Hyperlipidemia, unspecified; M19.91 Primary osteoarthritis, unspecified site; G47.33 Obstructive sleep apnea (adult) (pediatric); H26.9 Unspecified cataract; Z87.891 Personal history of nicotine dependence; Z79.01 Long term (current) use of anticoagulants; Z79.82 Long term (current) use of aspirin; Z79.899 Other long term (current) drug therapy; Z87.440 Personal history of urinary (tract) infections; Z88.1 Allergy status to other antibiotic agents; Z88.2 Allergy status to sulfonamides; Z80.0 Family history of malignant neoplasm of digestive organs; Z80.8 Family history of malignant neoplasm of other organs or systems; Z80.52 Family history of malignant neoplasm of bladder
CPT/HCPCS: 36415; 74018; 74177; 76705; 78226; 78227; 80053; 81001; 82150; 83690; 85025; 88304; 93005; 93306; 96361; 96365; 96374; 96376; 99285

== ENCOUNTER → 2018-05-21 | Outpatient (CLI) | payer BC ==
[2018-05-21 16:44] LABS: Anion Gap 11.1 mmol/L (4.00-12.00); Calcium 10.1 mg/dL (8.7-10.3); Carbon Dioxide 25.9 mmol/L (21.6-31.8); Magnesium 1.8 mg/dL (1.5-2.4); Potassium 4.6 mmol/L (3.5-5.5)
== END | disposition home or self-care (01) ==
LOC: LABWHC1 07:37
PROVIDERS: ATTEND Internal Medicine Clinical Cardiac Electrophysiology
DX: I48.1 Persistent atrial fibrillation (principal); I25.10 Atherosclerotic heart disease of native coronary artery without angina pectoris; Z79.899 Other long term (current) drug therapy
CPT/HCPCS: 36415; 80048; 83735

== ENCOUNTER 2018-07-23 09:45 | Day surgery (SDC) | payer BC ==
[2018-07-22 09:45] VITALS: BMI 52.9
[2018-07-23] MEDS ORDERED: LACTATED RINGERS 1,000 ML IV ONE (10:28)
[2018-07-23] MEDS ORDERED: LIDOCAINE 1% 20 ML VIAL (10MG/ML) FOR IV START INTRADERMA ONE (10:29)
[2018-07-23] MEDS ORDERED: PROPOFOL 10 MG/ML 20 ML VIAL IV ONE (10:31)
[2018-07-23 10:32] VITALS: RESP 18; TEMP 97.1
--- NOTE | 2018-07-23 10:40 | P.GSHP ---
History of Present Illness H&P Date: 07/23/18 Chief Complaint: Colon cancer screening Patient here today for colonoscopy. Last colonoscopy 7 years ago. Family history of colon cancer in his mother. No bowel related complaints. Past Medical History Past Medical History: Atrial Fibrillation, Coronary Artery Disease (CAD), GERD/Reflux, Hyperlipidemia, Hypertension, Osteoarthritis (OA), Sleep Apnea/CPAP/BIPAP Additional Past Medical History / Comment(s): "enlarged heart", Hx cellulitis testical , cpap machine , pain in Hips and Knees. History of Any Multi-Drug Resistant Organisms: None Reported Past Surgical History: Cholecystectomy, Heart Catheterization Additional Past Surgical History / Comment(s): cardiac ablation,cardioversion,ep studies , left eardrum surgery , rt knee arthroscopy Past Anesthesia/Blood Transfusion Reactions: Previous Problems w/ Anesthesia Additional Past Anesthesia/Blood Transfusion Reaction / Comment(s): WOKE UP "GRUMPY" AND "TRIED TO GET UP" AFTER GALL BLADDER SURGERY. Past Psychological History: No Psychological Hx Reported Additional Psychological History / Comment(s): . Smoking Status: Former smoker Past Alcohol Use History: Occasional Additional Past Alcohol Use History / Comment(s): started smoking approx 1971 and quit 2001 ,smoked 1-2 ppd Past Drug Use History: None Reported - Past Family History Mother Family Medical History: Cancer Additional Family Medical History / Comment(s): colon cancer Sister(s) Additional Family Medical History / Comment(s): brain cancer Father Family Medical History: Cancer Additional Family Medical History / Comment(s): bladder cancer Brother(s) Additional Family Medical History / Comment(s): MS Medications and Allergies Home Medications Medication Instructions Recorded Confirmed Type Aspirin EC [Ecotrin Low Dose] 81 mg PO DAILY 09/05/16 07/23/18 History Cholecalciferol [Vitamin D3 (25 5,000 unit PO DAILY 09/05/16 07/23/18 History Mcg = 1000 Iu)] Dofetilide [Tikosyn] 500 mcg PO Q12HR 09/05/16 07/23/18 History Lisinopril [Zestril] 20 mg PO BID 09/05/16 07/23/18 History Magnesium Chloride [Slow-Mag] 64 mg PO BID 09/05/16 07/23/18 History Multivitamins, Thera [Multivitamin 1 tab PO HS 09/05/16 07/23/18 History (formulary)] [place]-3 Fatty Acids/Fish Oil [Fish 1 cap PO BID 09/05/16 07/23/18 History Oil 1,000 mg Capsule] Omeprazole 20 mg PO HS 09/05/16 07/23/18 History Rivaroxaban [Xarelto] 20 mg PO DAILY 09/05/16 07/23/18 History Simvastatin [Zocor] 20 mg PO HS 09/05/16 07/23/18 History Vitamin E (Dl,Tocopheryl Acet) 400 unit PO BID 09/05/16 07/23/18 History [Vitamin E] Acetaminophen [Tylenol Extra 1,000 mg PO DAILY 05/05/17 07/23/18 History Strength] Indomethacin [Indocin] 50 mg PO HS 05/05/17 07/23/18 History Ascorbic Acid [Vitamin C] 500 mg PO BID 07/22/18 07/23/18 History Allergies Allergy/AdvReac Type Severity Reaction Status Date / Time azithromycin [From Zithromax] AdvReac STATES Verified 07/23/18 10:14 INCOMPATABLE WITH TIKOSYN ciprofloxacin [From Cipro] AdvReac STATES Verified 07/23/18 10:14 INCOMPATABLE WITH TIKOSYN clarithromycin [From Biaxin] AdvReac STATES Verified 07/23/18 10:14 INCOMPATABLE WITH TIKOSYN levofloxacin [From Levaquin] AdvReac STATES Verified 07/23/18 10:14 INCOMPATABLE WITH TIKOSYN sulfamethoxazole AdvReac STATES Verified 07/23/18 10:14 [From Bactrim] INCOMPATABLE WITH TIKOSYN trimethoprim [From Bactrim] AdvReac STATES Verified 07/23/18 10:14 INCOMPATABLE WITH TIKOSYN Surgical - Exam Vital Signs Temp Pulse Resp BP Pulse Ox 97.1 F L 85 18 127/79 96 07/23/18 10:22 07/23/18 10:22 07/23/18 10:22 07/23/18 10:22 07/23/18 10:22 Physical exam: General: Well-developed, well-nourished HEENT: Normocephalic, sclerae nonicteric Abdomen: Nontender, nondistended Extremities: No edema Neuro: Alert and oriented Assessment and Plan (1) Colon cancer screening Narrative/Plan: Will proceed with colonoscopy Current Visit: Yes Status: Acute Code(s): Z12.11 - ENCOUNTER FOR SCREENING FOR MALIGNANT NEOPLASM OF COLON SNOMED Code(s): 347439523
--- NOTE | 2018-07-23 10:59 | P.PCN ---
Date of Procedure: 07/23/18 Procedure(s) Performed: PREOPERATIVE DIAGNOSIS: Colon cancer screening, family history POSTOPERATIVE DIAGNOSIS: Transverse colon polyp 2 PROCEDURE: Colonoscopy with snare polypectomy ANESTHESIA: MAC SURGEON: Azeem Patterson M.D. SPECIMENS: Transverse colon polyps ENDOSCOPIC PROCEDURE: The patient was placed on the endoscopy table in the left decubitus position. The Olympus colonoscope was inserted into the anus and passed under direct visualization to the base of the cecum. The appendiceal orifice was visualized. From that point the scope was slowly withdrawn inspecting all surfaces carefully. There were no neoplastic inflammatory or polypoid lesions throughout the cecum and ascending colon. In the mid transverse colon there were 2 polyps noted. Both removed using the snare with cautery technique. The remainder of the ascending, transverse, descending, sigmoid and rectum appeared normal. There was no visible diverticulosis noted. Digital rectal examination was normal. The patient was taken to the recovery room in stable condition per anesthesia guidelines. RECOMMENDATIONS: Await biopsy results. Follow-up colonoscopy 5 years.
[2018-07-23 11:40] VITALS: BP 110/74; PULSE 79
== END 2018-07-23 11:45 | disposition home or self-care (01) ==
LOC: ORWHC2ENDO 09:45
PROVIDERS: ATTEND Surgery
DX: Z12.11 Encounter for screening for malignant neoplasm of colon (principal); D12.3 Benign neoplasm of transverse colon; E78.5 Hyperlipidemia, unspecified; I10 Essential (primary) hypertension; I25.10 Atherosclerotic heart disease of native coronary artery without angina pectoris; I48.91 Unspecified atrial fibrillation; K21.9 Gastro-esophageal reflux disease without esophagitis; M19.90 Unspecified osteoarthritis, unspecified site; Z79.82 Long term (current) use of aspirin; Z79.899 Other long term (current) drug therapy; Z80.0 Family history of malignant neoplasm of digestive organs; Z87.891 Personal history of nicotine dependence; Z88.1 Allergy status to other antibiotic agents; Z88.2 Allergy status to sulfonamides; Z90.49 Acquired absence of other specified parts of digestive tract; G47.33 Obstructive sleep apnea (adult) (pediatric)
CPT/HCPCS: 88305; 45385; J2704

== ENCOUNTER → 2018-08-26 | Outpatient (CLI) | payer BC ==
[2018-08-26 16:10] LABS: HCT 44.7 % (39.0-53.0); HGB 15.1 gm/dL (13.0-17.5); MCH 32.2 pg (25.0-35.0); MCHC 33.7 g/dL (31.0-37.0); MCV 95.4 fL (80.0-100.0); Platelet Count 231 k/uL (150-450); RBC 4.69 m/uL (4.30-5.90); RDW 14.5 % (11.5-15.5); WBC 6.4 k/uL (3.8-10.6)
[2018-08-26 16:13] LABS: Amorphous Sediment,Urine Rare /hpf; Appearance,Urine Clear (Clear); Bilirubin,Urine Negative (Negative); Blood,Urine Negative (Negative); Color,Urine Yellow; Glucose,Urine (UA) Negative (Negative); Ketones,Urine 2+ (Negative); Leukocyte Esterase,Urine Negative (Negative); Mucus,Urine Occasional /hpf; Nitrite,Urine Negative (Negative); Protein,Urine 1+ (Negative); RBC,Urine 2 /hpf (0-5); Specific Gravity,Urine 1.027 (1.001-1.035); Squamous Epithelial Cell,Urine 2 /hpf (0-4); Urobilinogen,Urine <2.0 mg/dL (<2.0); WBC,Urine 2 /hpf (0-5)
[2018-08-26 16:19] LABS: Prothrombin Time 10.7 sec (9.0-12.0)
[2018-08-27 00:32] LABS: Albumin 4.4 g/dL (3.80-4.90); Albumin/Globulin Ratio 1.76 (1.60-3.17); Anion Gap 14.2 mmol/L (4.00-12.00); Calcium 9.6 mg/dL (8.7-10.3); Carbon Dioxide 21.8 mmol/L (21.6-31.8); Globulin 2.5 g/dL (1.6-3.3); Potassium 4.3 mmol/L (3.5-5.5); Total Protein 6.9 g/dL (6.2-8.2)
== END | disposition home or self-care (01) ==
LOC: LABWHC1 15:09
PROVIDERS: ATTEND Orthopaedic Surgery
DX: Z01.818 Encounter for other preprocedural examination (principal); M16.11 Unilateral primary osteoarthritis, right hip; Z01.812 Encounter for preprocedural laboratory examination
CPT/HCPCS: 36415; 80053; 81001; 85027; 85610; 85730; 87070; 93005

== ENCOUNTER 2018-09-06 07:49 | Inpatient (IN) | payer BC ==
[2018-08-27 11:41] VITALS: BMI 50.8
[~2018-09-06 07:49] MED LIST: ACETAMINOPHEN TAB 500 MG TAB PO ONE; DEXAMETHASONE SOD PHOSPHATE 10 MG/ML 1 ML VIAL IV ONE; LIDOCAINE 1% 20 ML VIAL (10MG/ML) FOR IV START INTRADERMA PRN; MELOXICAM 7.5 MG TAB PO ONE; MIDAZOLAM 2 MG/2 ML VIAL IV PRN; ONDANSETRON 4 MG/2 ML VIAL IVP ONE; ROPIVACAINE 246.25 MG, EPINEPHrine 0.5 MG, KETOROLAC 30 MG, cloNIDine HCL/PF 80 MCG, WA... MISCELLANE ONE; TRANEXAMIC ACID 1,000 MG in SODIUM CHLORIDE 0.9% 100 ML IVPB ONE; ceFAZolin 3 GM in SODIUM CHLORIDE 0.9% 100 ML IVPB ONE; fentaNYL (PF) 50 MCG/ML 2 ML AMP IV PRN
[2018-09-06] MEDS ORDERED: MAGNESIUM HYDROXIDE 2,400 MG/10 ML CUP PO PRN (08:13)
[2018-09-06] MEDS ORDERED: HYDROmorphone 1 MG/ML 1 ML SYRINGE IVP PRN (08:13)
[2018-09-06] MEDS ORDERED: NALOXONE 0.4 MG/ML 1 ML VIAL IV PRN (08:13)
[2018-09-06] MEDS ORDERED: hydrOXYzine PAMOATE 25 MG CAP PO PRN (08:13)
[2018-09-06] MEDS ORDERED: ONDANSETRON 4 MG/2 ML VIAL IVP PRN (08:13)
[2018-09-06] MEDS ORDERED: NA PHOS,M-B/NA PHOS,DI-BA 133 ML ENEMA RECTAL PRN (08:13)
[2018-09-06] MEDS ORDERED: HYDROcodone/APAP 5-325MG 1 EACH TAB PO PRN (08:13)
[2018-09-06] MEDS ORDERED: BISACODYL 10 MG SUPP RECTAL PRN (08:13)
[2018-09-06] MEDS ORDERED: HYDROmorphone 0.5 MG/0.5 ML SYRINGE IVP PRN ×2 (08:13)
[2018-09-06] MEDS ORDERED: DIAZEPAM 5 MG TAB PO PRN (08:13)
[2018-09-06] MEDS: LACTATED RINGERS 1,000 ML IV SCH (08:35)
[2018-09-06] MEDS ORDERED: MIDAZOLAM (PF) 2 MG/2 ML VIAL IVP ONE (08:40)
[2018-09-06] MEDS ORDERED: MELOXICAM 7.5 MG TAB PO SCH (09:00)
--- NOTE | 2018-09-06 09:01 | P.OP ---
Date of Procedure: 09/06/18 Preoperative Diagnosis: Severe osteoarthritis right knee Postoperative Diagnosis: Severe osteoarthritis right knee Procedure(s) Performed: Right total knee arthroplasty Implants: Griffin and Nephew Journey II CR Oxinium cruciate retaining femoral component size 7, right Griffin & Nephew Journey right nonporous tibial baseplate size 6 Griffin & Nephew Journey II, XLPE Deep Dished articular insert, size 9 mm, Size 5- 6 right Griffin & Nephew Journey BCS resurfacing oval patellar component, 32 mm All components were cemented using Pal[place]os R bone cement.. The articulation is Oxinium on polyethylene. Anesthesia: spinal Surgeon: Anant Lawrence Wind Development Director #1: Ina Ontiveros Estimated Blood Loss (ml): 50 Pathology: other (Bone and cartilage) Condition: stable Disposition: PACU Indications for Procedure: After failure of conservative treatment we discussed the surgical and nonsurgical treatment options at length. Patient wishes to proceed with a total knee arthroplasty. Complications specific to this procedure were discussed at length, including but not limited to infection, bleeding, stiffness, and nerve injury. Patient is aware of all these complications and informed consent was obtained Operative Findings: The operative findings are consistent with severe osteoarthritis of the right knee Description of Procedure: Patient was seen in the preoperative area consent was reviewed and operative site was marked with a skin marker. An adductor canal pain catheter was placed by anesthesia in the preoperative area. Patient was then brought to the operat ing room and given preoperative antibiotics intravenously. A spinal anesthetic was administered by the anesthesia department. A tourniquet was placed on the upper thigh and the lower extremity was prepped and draped in usual sterile fashion. A gram of transexamic acid was given. A universal timeout was then performed which confirmed the patient's name, surgical site, ALLERGIES, and consent. The lower extremity was then exsanguinated and tourniquet was inflated to 250 mmHg. A standard and anterior midline approach to the knee was performed. The skin and subcutaneous tissue was dissected down to the patellar tendon. A medial parapatellar arthrotomy was then performed. The knee was then extended, the patellar was everted, and the knee was again flexed. Anterior horns of both menisci were excised, and a release was performed to the posterior medial aspect of the knee. On gross visual inspection, there was complete loss of articular cartilage in the medial and patellofemoral joint spaces. There was also significant cartilage damage in the lateral compartment. There were multiple periarticular osteophytes which were then removed with a Ronguer. The femoral canal was then opened with the appropriate drill, and the intramedullary femoral cutting guide was then placed and set for 5 of valgus. The distal femoral cutting block was then pinned in place, and the distal femur was then cut. The cutting block was then removed and the cut was checked for flatness. Next, the sizing guide was then placed and set for 3 external rotation based off of the epicondylar axis and Whitesides line. After the femur was sized, the appropriate 4-in-1 cutting block was then pinned in place. The anterior condyles were cut without notching. The posterior and chamfer cuts were perfor med while protecting the collateral ligaments. The cutting block was then removed, and the femoral canal was plugged with autologous bone. Attention was then directed to the tibia. The remaining ACL was removed with a Ronguer, and the tibia was then gently subluxed forward with a large bent knee retractor. Any remaining menisci was excised. The posterior lateral corner was cauterized in order to cauterize the lateral geniculate artery. The extra medullary tibial cutting guide was then placed, set for the appropriate rotation, slope, and depth of resection. The proximal tibia cutting guide was then pinned in place. Proximal tibia was then cut and sized. Next trials were then placed with the appropriate-sized insert. The knee was able to fully extend and flex to 130 and was stable throughout all range of motion. The knee was then extended, patella everted. Patella was then measured, and then using an osteotomy guide, the patella was cut at the appropriate level. The patella was then measured and drilled and the patella trial was then placed. The knee was then taken through range of motion with the patella trial and the patella tracked normally. The knee was then extended patella trial was then removed and the patella was everted. Knee was then flexed and lug holes were drilled through the femoral trial and the femoral trial was then removed. The tibial was then exposed, and the tibial broach guide was then pinned in place after it was set for the appropriate rotation to allow for the most coverage without overhang. The tibia was then reamed and broached. The cut surfaces of bone were then irrigated with pulsatile lavage. The posterior structures were injected with the ropivacaine solution. The knee was also irrigated with Irrisept solution. The components were then opened, the cement was mixed, and the components were then cemented in place. The cement was allowed to harden with the knee in full extension. While the cement was hardening, the remaining soft tissues were then injected with a ropivacaine solution, which consisted of 246.25 mg of ropivacaine, 0.5 mg of epinephrine, 30 mg of Toradol, 80 g of clonidine, and 48.45 mL of sterile water, for a total of 100 mL of fluid injected. After the cemented hardened. The tourniquet was released, and hemostasis was obtained. A second gram of transexamic acid was given. The knee was again irrigated. The knee was again taken through range of motion and found to be stable throughout all range of motion of 0-130, and the patella tracked normally. The fascia was then closed with #2 strata fix suture. The subcutaneous tissue was closed with 3-0 Vicryl and 3-0 strata fix. Dermabond glue was used for the skin and placed with the knee in flexion. The patient was placed in a sterile silver dressing. Patient was then transferred to recovery room in stable condition. The porcelain buildup assistant SHERITA Gilbert was required due the complexity surgery and the need for a skilled surgical assist. She assisted in positioning, draping, retraction, and closure of the wound.
--- NOTE | 2018-09-06 09:04 | P.ANPRN ---
Procedure Note - Anesthesia - Nerve Block Performed Right Adductor Canal Infusion Date of Procedure: 09/06/18 Procedure Start Time: 08:40 Procedure Stop Time: 08:50 Location of Patient Procedure: PreOp Indication: Acute Post-Operative Pain, Dx/Pain Location, Requested by physician Specifically requested for management of pain by DrvEa: Anant Lawrence Sedation Type: Sedate with meaningful contact maintained Preparation: Sterile Prep, Sterile Dressing Position: Supine Catheter Depth at Skin (cm): 9 Catheter: Indwelling Needle Types: Pajunk Needle Gauge: 18 Technique: Ultrasound Injectate: 0.5% Ropivacaine (see comment for volume) Blood Aspirated: No Pain Paresthesia on Injection Noted: No Resistance on Injection: Normal Events: Uneventful and Well Tolerated
[2018-09-06] MEDS ORDERED: PROPOFOL 10 MG/ML 20 ML VIAL IV ONE (09:20)
[2018-09-06] MEDS ORDERED: ePHEDrine SULFATE/0.9% NACL/PF 50 MG/5 ML SYRINGE IV ONE (09:20)
[2018-09-06] MEDS ORDERED: SODIUM CHLORIDE 0.9% 100 ML BAG ONE (09:20)
[2018-09-06] MEDS ORDERED: KETAMINE 10 MG/ML 20 ML VIAL ONE (09:20)
[2018-09-06] MEDS ORDERED: PHENYLEPHRINE-0.9% NACL SYG 1 MG/10 ML SYRINGE ONE (09:20)
[2018-09-06] MEDS ORDERED: TRANEXAMIC ACID 1,000 MG/10 ML VIAL ONE (09:20)
[2018-09-06] MEDS ORDERED: MIDAZOLAM 2 MG/2 ML VIAL ONE (09:20)
[2018-09-06] MEDS ORDERED: fentaNYL (PF) 50 MCG/ML 2 ML AMP ONE (09:20)
[2018-09-06] MEDS ORDERED: ROPIVACAINE 1,100 MG, SODIUM CHLORIDE 0.9% 500 ML 330 ML MISCELLANE PRN ×2 (10:01)
[2018-09-06] MEDS ORDERED: LACTATED RINGERS 1,000 ML IV ONE (10:23)
--- NOTE | 2018-09-06 12:00 | XR ---
Right knee HISTORY: Postop Right knee images submitted in frontal and lateral projections Patient is status post right knee arthroplasty. There is anatomic alignment. Lucency present in the s oft tissues compatible with postop state. Small ossific densities about the knee are likely postopera tive, difficult to exclude loose bodies. IMPRESSION: Orthopedic follow-up, difficult to exclude loose bodies.
[2018-09-06] MEDS: SODIUM CHLORIDE 0.9% 1,000 ML IV SCH (16:45)
[2018-09-06] MEDS: ceFAZolin 3 GM in SODIUM CHLORIDE 0.9% 100 ML IVPB SCH (16:52)
--- NOTE | 2018-09-06 20:20 | CONS ---
CONSULTATION DATE OF ADMISSION: 09/06/2018. REASON FOR ADMISSION: Total right knee arthroplasty. DATA: The patient is a 63-year-old white male. The patient was admitted to the hospital, underwent the surgery of the right total knee arthroplasty, and he has been wrapped. Post surgery a medical consult was requested for medical management. His PCP is Dr. Guevara Simeon, and Dr. Guevara Simeon asked me to see him in the hospital. CURRENT MEDICATION: 1. Fish oil 1000 mg capsule daily. 2. Multivitamin capsule daily. 3. 500 mg tablet daily. 4. Indomethacin capsule for arthritis. 5. Xarelto 20 mg tablet once daily. 6. He has been seen in the past by Dr. Sawant, fell cutter, who treated him for his atrial fibrillation with Tikosyn 500 mg capsule once a day. 7. Aspirin 81 mg once a day. 8. Vitamin D3 and vitamin E 400 mg capsule. 9. Slow-Mag 64 mg tablet. 10.Lisinopril 20 mg once a day. 11.Omeprazole 20 mg capsule delayed-release. 12.Lipitor 20 mg, which is atorvastatin 20 mg. PAST MEDICAL HISTORY: 1. Hypertension. 2. Atrial fibrillation for the last 6 years. 3. He has weight gain, weight loss ups and downs. 4. He had glasses and contacts. 5. Unsteady gait occasionally because of the arthritis. ALLERGIES: UNKNOWN. PAST SURGICAL HISTORY: 1. Cholecystectomy. 2. Heart ablation x3 by Dr. Sawant. FAMILY HISTORY: Diabetes. REVIEW OF SYSTEMS: NEUROPSYCHIATRY: Negative. CARDIOVASCULAR: No palpitation or chest pain. RESPIRATORY: No cough or expectoration. GI: No hematemesis or melena or hematochezia or nausea or vomiting. : No dysuria or hematuria. The patient also denied any history of blood clots. He denied any depression or nervousness. The patient was seen by Dr. Guevara Simeon in the office and he cleared him for the surgery on 09/02/2018. He had cardiology clearance from Dr. Sawant. At that time, his blood pressure was stable 136/80 and pulse was 68. Respiratory rate was 18 and he had normal temperature. CURRENT PHYSICAL EXAMINATION: Postoperatively his vital signs are stable. Post surgery his heart rate is 83, blood pressure 123/79 with a mean pressure of 93. He is on room air. Before surgery, his temperature was 98, pulse was 82, respiratory rate 16 and blood pressure 111/74. On room air he was 94%. The patient did not have any labs prior to the surgery. X-ray was done post total knee arthroplasty. On the examination, the patient was conscious, alert, oriented. His was at bedside. HEENT: The head was normocephalic, atraumatic. Pupils were equal, reactive. Conjunctivae were pink, sclerae nonicteric. Oropharynx revealed natural teeth, uvula midline. No facial asymmetry. Neck was supple; no JVD. No thyromegaly. No lymphadenopathy. Trachea midline. Chest was clear to auscultation and percussion. No wheezes or rhonchi. Preoperatively no chest x-ray was obtained. Also I could not see that an EKG was obtained; however, he stated that he had the atrial fibrillation and he was anticoagulated. HEART: PMI in the fifth intercostal space. Regular sinus rhythm. ABDOMEN: Soft, obese. Positive bowel sounds. No tenderness. EXTREMITIES: No edema. His right knee has been wrapped postoperatively. He had pulses in the dorsalis pedis and posterior tibial. No edema on the right lower extremity. The left lower extremity had no evidence of edema, either. Neurologically, no lateralizing sign. PSYCHIATRY: Mood is stable. No evidence of anxiety or depression. The patient has been treated with multiple pain medications by the orthopedic surgeon. He will be started on his Xarelto tomorrow. ASSESSMENT AT THIS TIME: 1. Stable general condition, status post right total knee arthroplasty. 2. Underlying history of advanced degenerative arthritis of the knee. 3. History of atrial fibrillation, on medication Tikosyn. 4. Patient will be on Xarelto. 5. Patient will be on a stool softener for the time being. 6. Patient already has an order for anti-embolism hose on the right knee and pneumatic compression. He is already on Xarelto that will be continued. My understanding from Orthopedics is that they will let him have it in the morning for continuation of treatment of the atrial fibrillation. As patient is in stable general condition, no change in his medication. We will be following him during his hospital stay as well as after the hospital stay. MMODL / IJN: [id number] /
[2018-09-06] MEDS: LISINOPRIL 10 MG TAB PO SCH (20:50)
[2018-09-06] MEDS: DOFETILIDE 500 MCG CAP PO SCH (20:50)
[2018-09-06] MEDS ORDERED: MULTIVITAMINS, THERA 1 EACH TAB PO SCH (21:00)
[2018-09-06] MEDS ORDERED: ATORVASTATIN 20 MG TAB PO SCH (21:00)
[2018-09-06] MEDS ORDERED: PANTOPRAZOLE 40 MG TABLET PO SCH (21:00)
[2018-09-06] MEDS ORDERED: SENNOSIDES-DOCUSATE SODIUM 1 EACH TAB PO SCH (21:00)
[2018-09-06] MEDS: HYDROcodone/APAP 5-325MG 1 EACH TAB PO PRN (22:44)
[2018-09-07] MEDS: SODIUM CHLORIDE 0.9% 1,000 ML IV SCH (00:41)
[2018-09-07] MEDS ORDERED: ceFAZolin 3 GM in SODIUM CHLORIDE 0.9% 100 ML IVPB SCH (03:00)
[2018-09-07] MEDS: ceFAZolin 3 GM in SODIUM CHLORIDE 0.9% 100 ML IVPB SCH (03:31)
[2018-09-07] MEDS: LACTATED RINGERS 1,000 ML IV SCH (05:15)
[2018-09-07 07:41] VITALS: BP 143/87; PULSE 81; RESP 18; TEMP 98.6
[2018-09-07] MEDS: DOFETILIDE 500 MCG CAP PO SCH (08:13)
[2018-09-07] MEDS: HYDROcodone/APAP 5-325MG 1 EACH TAB PO PRN ×2 (08:14→13:15)
[2018-09-07] MEDS: LISINOPRIL 10 MG TAB PO SCH (08:14)
[2018-09-07 08:54] LABS: ALT 37 U/L (21-72); AST 29 U/L (17-59); African American GFR (CKD) >90 (>60 ml/min/1.73 sqM); Alkaline Phosphatase 73 U/L (38-126); Anion Gap 8 mmol/L; Blood Urea Nitrogen 12 mg/dL (9-20); Calcium 9.7 mg/dL (8.4-10.2); Carbon Dioxide 31 mmol/L (22-30); Chloride 99 mmol/L (98-107); Glucose 114 mg/dL (74-99); Magnesium 1.8 mg/dL (1.6-2.3); Potassium 3.9 mmol/L (3.5-5.1); Sodium 138 mmol/L (137-145); Total Bilirubin 0.9 mg/dL (0.2-1.3); Total Protein 6.8 g/dL (6.3-8.2)
[2018-09-07] MEDS ORDERED: RIVAROXABAN 20 MG TAB PO SCH (09:00)
[2018-09-07] MEDS ORDERED: ASPIRIN 81 MG PO SCH (09:00)
[2018-09-07 09:01] LABS: Basophils % (A) 0 %; Eosinophils # (A) 0.1 k/uL (0-0.7); Eosinophils % (A) 1 %; HCT 41.1 % (39.0-53.0); HGB 13.2 gm/dL (13.0-17.5); Lymphocytes # (A) 1.6 k/uL (1.0-4.8); Lymphocytes % (A) 15 %; MCH 30.6 pg (25.0-35.0); MCV 95.5 fL (80.0-100.0); Mean Platelet Volume 7.3; Monocytes # (A) 0.7 k/uL (0-1.0); Monocytes % (A) 6 %; Neutrophils # (A) 8.2 k/uL (1.3-7.7); Neutrophils % (A) 76 %; Platelet Count 207 k/uL (150-450); RBC 4.31 m/uL (4.30-5.90); RDW 15.6 % (11.5-15.5); WBC 10.8 k/uL (3.8-10.6)
--- NOTE | 2018-09-07 09:04 | P.DS ---
Providers Date of admission: 09/06/18 07:49 Expected date of discharge: 09/07/18 Attending physician: Anant Lawrence Consults: 09/06/18 08:13 Consult Physician Routine Consulting Provider: Kamron Willis Consult Reason/Comments: medical management and anticoagulation Do you want consulting provider notified?: Already Contacted Primary care physician: Guevara Simeon - Discharge Diagnosis(es) (1) Osteoarthritis of right knee Current Visit: Yes Status: Acute (2) S/P total knee arthroplasty Current Visit: Yes Status: Acute Hospital Course: This is a 63-year-old male with known history of degenerative arthritis of the right knee. The patient presents for evaluation. After discussion and consideration patient elects to proceed with total knee arthroplasty. The patient is seen preoperatively by Dr. Lawrence and medically cleared for surgery by their primary care physician. Patient is admitted to [facility] on 09/06/2018 for total knee arthroplasty. The procedures performed without complication or sequelae. The patient is doing well postoperatively. Labs and vital signs are stable on day of discharge. On day of discharge patient's knee incision is healing well. There is minimal erythema. There is no drainage noted at this time. There is minimal soft tissue swelling to the knee. Patient has full foot and ankle motion without difficulty or pain. Calf is soft and nontender to palpation. Neurovascular status to the right lower extremity is intact. Patient is discharged home in good condition. Opioid start talking form is reviewed and signed at patient bedside. Please see med rec for accurate list of home medications. Plan - Discharge Summary Discharge Rx Participant: No New Discharge Prescriptions: New HYDROcodone/APAP 5-325MG [[place] 5-325] 1 - 2 tab PO Q6HR PRN #56 tab PRN Reason: Pain Sennosides [Senokot] 1 tab PO BID #60 tablet No Action Rivaroxaban [Xarelto] 20 mg PO DAILY Dofetilide [Tikosyn] 500 mcg PO Q12HR Omeprazole 20 mg PO HS Lisinopril [Zestril] 20 mg PO BID Vitamin E (Dl,Tocopheryl Acet) [Vitamin E] 400 unit PO BID Magnesium Chloride [Slow-Mag] 128 mg PO Q48H Cholecalciferol [Vitamin D3 (25 Mcg = 1000 Iu)] 5,000 unit PO DAILY Multivitamins, Thera [Multivitamin (formulary)] 1 tab PO HS Aspirin EC [Ecotrin Low Dose] 81 mg PO DAILY Indomethacin [Indocin] 50 mg PO HS Acetaminophen [Tylenol Extra Strength] 1,000 mg PO DAILY Ascorbic Acid [Vitamin C] 500 mg PO BID Krill/[place]-3/Dha/Epa/Lipids [Krill Oil 350 mg Softgel] 1 cap PO DAILY Atorvastatin [Lipitor] 20 mg PO HS Magnesium Chloride [Mag64] 192 mg PO Q48H Cranberry Fruit Extract [Cranberry] 1,500 mg PO DAILY Discharge Medication List Aspirin EC [Ecotrin Low Dose] 81 mg PO DAILY 09/05/16 [History] Cholecalciferol [Vitamin D3 (25 Mcg = 1000 Iu)] 5,000 unit PO DAILY 09/05/16 [History] Dofetilide [Tikosyn] 500 mcg PO Q12HR 09/05/16 [History] Lisinopril [Zestril] 20 mg PO BID 09/05/16 [History] Magnesium Chloride [Slow-Mag] 128 mg PO Q48H 09/05/16 [History] Multivitamins, Thera [Multivitamin (formulary)] 1 tab PO HS 09/05/16 [History] Omeprazole 20 mg PO HS 09/05/16 [History] Rivaroxaban [Xarelto] 20 mg PO DAILY 09/05/16 [History] Vitamin E (Dl,Tocopheryl Acet) [Vitamin E] 400 unit PO BID 09/05/16 [History] Acetaminophen [Tylenol Extra Strength] 1,000 mg PO DAILY 05/05/17 [History] Indomethacin [Indocin] 50 mg PO HS 05/05/17 [History] Ascorbic Acid [Vitamin C] 500 mg PO BID 07/22/18 [History] Atorvastatin [Lipitor] 20 mg PO HS 08/27/18 [History] Cranberry Fruit Extract [Cranberry] 1,500 mg PO DAILY 08/27/18 [History] Krill/[place]-3/Dha/Epa/Lipids [Krill Oil 350 mg Softgel] 1 cap PO DAILY 08/27/18 [History] Magnesium Chloride [Mag64] 192 mg PO Q48H 08/27/18 [History] HYDROcodone/APAP 5-325MG [[place] 5-325] 1 - 2 tab PO Q6HR PRN #56 tab 09/07/18 [Rx] Sennosides [Senokot] 1 tab PO BID #60 tablet 09/07/18 [Rx] Follow up Appointment(s)/Referral(s): Anant Lawrence DO [Doctor of Osteopathic Medicine] - 2 Weeks Ambulatory/Diagnostic Orders: Continuous Passive Motion (CPM) Machine [DME.AMB1] Time Frame: 3 Weeks, Location: None Selected Activity/Diet/Wound Care/Special Instructions: Weightbearing as tolerated with a walker. CPM 5-6h daily. Leave dressing intact. May be removed by home care nurse or by patient in 10 days. May shower with dressing on. Xarelto for anticoagulation. Patient has this prescription at home. Please follow up with [facility] and call with any questions or concerns, . Discharge Disposition: HOME WITH HOME HEALTH SERVICES
--- NOTE | 2018-09-07 12:18 | P.PN ---
Progress Note - Text Anesthesia POD 1. Patient is status post right TKR under spinal anesthesia with a right adductor canal catheter placed for postoperative pain relief. With ropivacaine 0.2% running at [] cc's per hour, the patient's VAS is (1, 4). Catheter site is clean dry and intact.
--- NOTE | 2018-09-07 12:34 | P.PN ---
Subjective Progress Note Date: 09/07/18 (Orthopedic discharge patient today.) Principal diagnosis: Dictation by Dr. Jacquelyn Hammond [facility] Diagnosis: #1 right total knee arthroplasty by Dr. Anant dacosta, on 09/06/2018, and di scharged today by the orthopedic surgeon. #2 Hypertension with Hypertensive Heart Disease. #3 atrial fibrillation with controlled ventricular response chronic on XERALTO [address] Sawant. #4 hyperlipidemia. #5 GERD disease. Progress note by Dr. Willis. Patient seen today evaluated and examined. Orthopedic team discharged patient today, I did review the medication with the patient and with minimal adjustment to avoid bleeding and was holding the vitamin D, vitamin E and other medication could be causing more bleeding and knee surgery sites of the right knee especially patient on xarelto and aspirin a day. The cardiology Dr. Sawant. On the examination on discharge: Patient is conscious alert oriented 3 and he uses a walker for ambulation he is going home he will be following with Dr. Ny orthopedic surgeon in his office. Patient also will be seen in my office and appointment was made. On exam: Head was normocephalic and atraumatic pupils was equal reactive conjunctiva was pink sclera was nonicteric oropharynx was negative no fascial asymmetry and able to eat and swallow. Neck was supple no JVD no thyromegaly no lymphadenopathy trachea midline. Chest was clear to auscultation and percussion. Heart irregular irregularities with controlled ventricular response with a h istory of chronic atrial fibrillation on Tikosyn per Dr. Hoang twice a day 500 mg. Abdomen soft positive bowel sounds origin enlargement. Extremities: Right total knee arthroplasty. Right calf no tenderness and no edema. Left lower extremities is negative. Neurologically no lateralizing sign. Psychiatry normal mood. Laboratories: WBC 10.8, hemoglobin 13.2, hematocrit 31.1. Chemistry sodium 138, potassium 3.9, chloride 99, CO2 31, creatinine 0.54, BUN 12, estimated glomerular filtration rate for non- more than 90, glucose 114, calcium 9.7, magnesium 1.8,, liver enzyme is abnormal with AST 29 a LT 37 alk phos 73 total protein 6.8 albumin is 4. Vital sign prior to discharge his temperature 98.6 F oral, his heart rate 81-86 controlled response, his blood pressure 143/87, room air pulse ox 97%. Assessment: Patient is stable general condition for discharge. Orthopedic. Pain control prescribed by the orthopedic floor there right total knee arthroplasty surgery. Hypertension is controlled. Plan: #1 medication was held until seen in the office which is [id number] med ication can be precipitate more bleeding. vitamin D, vitamin E, Kryl salutation, also lisinopril has been decreased to 10 mg twice a day until seen in the office and subsequently returned to normal dose if his blood pressure not controlled., Also no horace-3 or fish oil at this time as well IV spoke with the patient in detail. Patient has an appointment with me on 09/21/2018 at 3:20 PM. Objective - Vital Signs Vital signs: Vital Signs Temp 98.6 F 09/07/18 07:27 Pulse 81 09/07/18 07:27 Resp 18 09/07/18 07:27 BP 143/87 09/07/18 07:27 Pulse Ox 97 09/07/18 07:27 Intake & Output 09/06/18 09/07/18 09/07/18 18:59 06:59 18:59 Intake Total 2840 Output Total 50 Balance 2790 Intake: IV 1700 Intake, IV Titration 140 Amount Sodium Chloride 0.9% 1, 140 000 ml @ 70 mls/hr IV . [id number] JANNA Rx#:[id number] Oral 1000 Output: Estimated Blood Loss 50 Other: # Voids 1 - Labs CBC & Chem 7: 09/07/18 07:39 09/07/18 07:39 Labs: Abnormal Lab Results - Last 24 Hours (Table) 09/07/18 09/07/18 Range/Units 07:39 07:39 WBC 10.8 H (3.8-10.6) k/uL RDW 15.6 H (11.5-15.5) % Neutrophils # 8.2 H (1.3-7.7) k/uL Carbon Dioxide 31 H (22-30) mmol/L Creatinine 0.54 L (0.66-1.25) mg/dL Glucose 114 H (74-99) mg/dL
== END 2018-09-07 13:33 | disposition home health service (06) | DRG 470 ==
LOC: 2ORMAIN 07:49 → 4SSUR 11:27
PROVIDERS: ADMIT Orthopaedic Surgery; ATTEND Orthopaedic Surgery
PROC: 0SRC069 Replacement of Right Knee Joint with Oxidized Zirconium on Polyethylene Synthetic Substitute, Cemented, Open Approach (ICD-10-PCS; principal; 2018-09-06 09:20)
DX: M17.0 Bilateral primary osteoarthritis of knee (principal); Z68.43 Body mass index [BMI] 50.0-59.9, adult; I11.9 Hypertensive heart disease without heart failure; E78.5 Hyperlipidemia, unspecified; I48.91 Unspecified atrial fibrillation; K21.9 Gastro-esophageal reflux disease without esophagitis; R26.81 Unsteadiness on feet; E66.9 Obesity, unspecified; Z79.01 Long term (current) use of anticoagulants; Z79.82 Long term (current) use of aspirin; Z79.899 Other long term (current) drug therapy; Z90.49 Acquired absence of other specified parts of digestive tract; Z87.891 Personal history of nicotine dependence; Z83.3 Family history of diabetes mellitus
CPT/HCPCS: 80053; 83735; 85025; 88300; 93005

== ENCOUNTER 2018-10-10 15:00 | Emergency (ER) | payer BC ==
[2018-10-10 15:12] VITALS: BP 127/73; PULSE 97; RESP 18; TEMP 99
--- NOTE | 2018-10-10 15:50 | XR ---
Right hip HISTORY: Right hip pain 2 views of right hip There are ossific densities at the level of the lateral aspect of the bony glenoid, possible remote t rauma. The femoral head shows remodeling. There is loss of joint space. Some mild marginal spurring p resent. IMPRESSION: Suspect osteoarthritic change, consider femoral acetabular impingement.
[2018-10-10] MEDS ORDERED: LIDOCAINE 5% PATCH TOPICAL STA (16:23)
[2018-10-10] MEDS ORDERED: DEXAMETHASONE SOD PHOSPHATE 10 MG/ML 1 ML VIAL IM STA (16:23)
--- NOTE | 2018-10-10 17:26 | ED ---
General Adult HPI - General Chief complaint: Extremity Injury, Lower Stated complaint: Hip pain Time Seen by Provider: 10/10/18 15:17 Source: patient Mode of arrival: wheelchair Limitations: no limitations - History of Present Illness Initial comments: Patient is 63-year-old male presenting to emergency Department with right hip pain. Patient reports the pain started 2-3 days ago and has been increasing severity. Patient reports the pain is exacerbated with weightbearing and alleviated at rest. Patient reports the pain is not noticeable at rest. Patient reports sharp pain with ambulation. Patient reports 5 weeks ago he received a right knee replacement and is still undergoing physical therapy. Patient denies any numbness or tingling, edema or erythema at the site of tenderness. Patient reports the pain does not radiate anywhere. Patient reports taking Spearman with minimal improvement. Patient denies chest pain, chest tightness, recent chemotherapy use, recently prolonged periods of activity. Patient is also requesting an antifungal cream and powder for a rash under his right body fold. - Related Data Home Medications Medication Instructions Recorded Confirmed Aspirin EC [Ecotrin Low Dose] 81 mg PO DAILY 09/05/16 10/10/18 Cholecalciferol [Vitamin D3 (25 5,000 unit PO DAILY 09/05/16 10/10/18 Mcg = 1000 Iu)] Dofetilide [Tikosyn] 500 mcg PO Q12HR 09/05/16 10/10/18 Lisinopril [Zestril] 20 mg PO BID 09/05/16 10/10/18 Magnesium Chloride [Slow-Mag] 64 mg PO DIRECTED 09/05/16 10/10/18 Multivitamins, Thera [Multivitamin 1 tab PO DAILY 09/05/16 10/10/18 (formulary)] Omeprazole 20 mg PO DAILY 09/05/16 10/10/18 Rivaroxaban [Xarelto] 20 mg PO DAILY 09/05/16 10/10/18 Ascorbic Acid [Vitamin C] 250 mg PO BID 07/22/18 10/10/18 Atorvastatin [Lipitor] 20 mg PO DAILY 08/27/18 10/10/18 Acetaminophen [Tylenol Arthritis] 650 mg PO BID 10/10/18 10/10/18 Cranberry 15,000mg 15,000 mg PO BID 10/10/18 10/10/18 Indomethacin [Indocin] 50 mg PO DAILY 10/10/18 10/10/18 Krill/[place]-3/Dha/Epa/Lipids 1 cap PO DAILY 10/10/18 10/10/18 [Krill Oil 350 mg Softgel] Ubidecarenone [Co Q-10] 100 mg PO DAILY 10/10/18 10/10/18 Vitamin E (Dl,Tocopheryl Acet) 400 unit PO BID 10/10/18 10/10/18 [Vitamin E] Previous Rx's Medication Instructions Recorded Clotrimazole Cream [Lotrimin Cream] 1 applic TOPICAL BID #1 bottle 10/10/18 Nystatin 100,000 Unit/gm Powd 1 applic TOPICAL BID #15 gram 10/10/18 [Mycostatin Powder] Allergies Allergy/AdvReac Type Severity Reaction Status Date / Time azithromycin [From Zithromax] AdvReac STATES Verified 10/10/18 16:24 INCOMPATABLE WITH TIKOSYN ciprofloxacin [From Cipro] AdvReac STATES Verified 10/10/18 16:24 INCOMPATABLE WITH TIKOSYN clarithromycin [From Biaxin] AdvReac STATES Verified 10/10/18 16:24 INCOMPATABLE WITH TIKOSYN levofloxacin [From Levaquin] AdvReac STATES Verified 10/10/18 16:24 INCOMPATABLE WITH TIKOSYN sulfamethoxazole AdvReac STATES Verified 10/10/18 16:24 [From Bactrim] INCOMPATABLE WITH TIKOSYN trimethoprim [From Bactrim] AdvReac STATES Verified 10/10/18 16:24 INCOMPATABLE WITH TIKOSYN Review of Systems ROS Statement: Those systems with pertinent positive or pertinent negative responses have been documented in the HPI. ROS Other: All systems not noted in ROS Statement are negative. Past Medical History Past Medical History: Atrial Fibrillation, Coronary Artery Disease (CAD), GERD/Reflux, Hyperlipidemia, Hypertension, Osteoarthritis (OA), Sleep Apnea/CPAP/BIPAP Additional Past Medical History / Comment(s): "enlarged heart", beginning of cataracts domonique eyes, past cellulits lt testicle and uti-ecoli 02-28-. use cpap machine for liz. History of Any Multi-Drug Resistant Organisms: None Reported Past Surgical History: Cardiac Ablation, Cholecystectomy, Orthopedic Surgery Additional Past Surgical History / Comment(s): cardioversion,ep studies, left eardrum surgery , rt knee arthroscopy Past Anesthesia/Blood Transfusion Reactions: No Reported Reaction Additional Past Anesthesia/Blood Transfusion Reaction / Comment(s): "grumpy after last surgery" Past Psychological History: No Psychological Hx Reported Smoking Status: Former smoker Past Alcohol Use History: Rare Past Drug Use History: None Reported - Past Family History Mother Family Medical History: Cancer Additional Family Medical History / Comment(s): colon cancer Sister(s) Family Medical History: Cancer Additional Family Medical History / Comment(s): brain cancer Father Family Medical History: Cancer Additional Family Medical History / Comment(s): bladder cancer Brother(s) Additional Family Medical History / Comment(s): MS- General Exam Limitations: no limitations General appearance: alert, in no apparent distress, obese Head exam: Present: atraumatic, normocephalic, normal inspection Eye exam: Present: normal appearance, PERRL, EOMI Pupils: Present: normal accommodation ENT exam: Present: normal exam, mucous membranes moist, normal external ear exam Neck exam: Present: normal inspection Respiratory exam: Present: normal lung sounds bilaterally Cardiovascular Exam: Present: regular rate, normal rhythm, normal heart sounds Extremities exam: Present: normal capillary refill, other (+2 dorsalis pedis and posterior tibialis). Absent: normal inspection (Scarring noted on right knee due to recent surgery), full ROM (Limited range of motion in right hip with flexion and extension.), tenderness (No tenderness in the right hip with palpation), joint swelling (No edema noted), calf tenderness (Bilateral negative Soledad) Back exam: Present: normal inspection, full ROM Neurological exam: Present: alert, oriented X3 Psychiatric exam: Present: normal affect, normal mood Skin exam: Present: warm, intact, normal color Course Vital Signs 10/10/18 15:09 Temperature 99 F Pulse Rate 97 Respiratory 18 Rate Blood Pressure 127/73 O2 Sat by Pulse 95 Oximetry Medical Decision Making - Medical Decision Making Patient is 63-year-old male presenting to emergency Department with right hip pain. X-ray of the right hip is indicative of Diogo 3 changes and possibly some oral acetabular impingement. Patient was given steroids and a Lidoderm patch. Patient reports minimal improvement in symptoms. Patient does have history of osteoarthritis. I suspect the pain to be an exacerbation of his osteophytic changes related to age. Patient advised to follow-up with orthopedics. Strict return parameters were thoroughly discussed with patient was understanding and agreeable. Patient was also prescribed antifungal cream and powder due to a rash near his right body fold. Case discussed with physician. Disposition Clinical Impression: Hip pain, right Disposition: HOME SELF-CARE Condition: Stable Instructions (If sedation given, give patient instructions): Osteoarthritis (DC) Additional Instructions: Please see prescribe medication as directed. Please follow with orthopedics. Please return to emergency department if symptoms worsen. Prescriptions: Clotrimazole Cream [Lotrimin Cream] 1 applic TOPICAL BID #1 bottle Nystatin 100,000 Unit/gm Powd [Mycostatin Powder] 1 applic TOPICAL BID #15 gram Is patient prescribed a controlled substance at d/c from ED?: No Referrals: Kamron Willis MD [Primary Care Provider] - 1-2 days Time of Disposition: 17:26
== END 2018-10-10 17:40 | disposition home or self-care (01) ==
LOC: EC 15:00
DX: M25.551 Pain in right hip (principal); R21 Rash and other nonspecific skin eruption; M19.90 Unspecified osteoarthritis, unspecified site; I48.91 Unspecified atrial fibrillation; I25.10 Atherosclerotic heart disease of native coronary artery without angina pectoris; I10 Essential (primary) hypertension; K21.9 Gastro-esophageal reflux disease without esophagitis; E78.5 Hyperlipidemia, unspecified; G47.33 Obstructive sleep apnea (adult) (pediatric); Z99.89 Dependence on other enabling machines and devices; Z96.651 Presence of right artificial knee joint; Z79.82 Long term (current) use of aspirin; Z79.01 Long term (current) use of anticoagulants; Z79.1 Long term (current) use of non-steroidal anti-inflammatories (NSAID); Z79.899 Other long term (current) drug therapy; Z88.1 Allergy status to other antibiotic agents; Z88.2 Allergy status to sulfonamides
CPT/HCPCS: 73502; 99283; 96372; J1100

== ENCOUNTER → 2018-10-18 | Outpatient (CLI) | payer BC ==
[2018-10-18 16:16] LABS: Basophils % (A) 0 %; Eosinophils # (A) 0.1 k/uL (0-0.7); Eosinophils % (A) 1 %; Lymphocytes # (A) 1.1 k/uL (1.0-4.8); Lymphocytes % (A) 10 %; MCH 31.2 pg (25.0-35.0); MCHC 33.3 g/dL (31.0-37.0); MCV 93.8 fL (80.0-100.0); Mean Platelet Volume 6.7; Monocytes # (A) 0.4 k/uL (0-1.0); Monocytes % (A) 4 %; Neutrophils # (A) 9.7 k/uL (1.3-7.7); Neutrophils % (A) 84 %; Platelet Count 278 k/uL (150-450); RBC 5.12 m/uL (4.30-5.90); RDW 14.3 % (11.5-15.5); WBC 11.4 k/uL (3.8-10.6)
[2018-10-18 23:42] LABS: African American GFR (CKD) 116.4 (60.0-200.0); Anion Gap 14.5 mmol/L (4.00-12.00); BUN/Creat Ratio 22.86 Ratio (12.00-20.00); Calcium 10.1 mg/dL (8.7-10.3); Carbon Dioxide 26.5 mmol/L (21.6-31.8); Potassium 4.6 mmol/L (3.5-5.5); Uric Acid 5.1 mg/dL (3.7-8.7)
== END | disposition home or self-care (01) ==
LOC: LABWHC1 15:51
PROVIDERS: ATTEND Internal Medicine
DX: M10.9 Gout, unspecified (principal); E87.8 Other disorders of electrolyte and fluid balance, not elsewhere classified; M19.90 Unspecified osteoarthritis, unspecified site
CPT/HCPCS: 36415; 80048; 84550; 85025

== ENCOUNTER → 2018-10-26 | Outpatient (CLI) | payer BC | END | disposition home or self-care (01) | LOC: RADMRIMAIN 06:56 | PROVIDERS: ATTEND Physical Medicine & Rehabilitation | DX: Z53.9 Procedure and treatment not carried out, unspecified reason (principal) ==

== ENCOUNTER → 2019-09-06 | Outpatient (CLI) | payer BC ==
[2019-09-06 20:43] LABS: African American GFR (CKD) 123.1 (60.0-200.0); BUN/Creat Ratio 18.33 Ratio (12.00-20.00); Calcium 9.5 mg/dL (8.7-10.3); Magnesium 1.7 mg/dL (1.5-2.4); Non-African American GFR(CKD) 106.3 (60.0-200.0); Potassium 4.1 mmol/L (3.5-5.5)
== END | disposition home or self-care (01) ==
LOC: LABWHC1 12:28
PROVIDERS: ATTEND Physician Assistant
DX: I10 Essential (primary) hypertension (principal); I48.91 Unspecified atrial fibrillation
CPT/HCPCS: 36415; 80048; 83735

== ENCOUNTER → 2020-03-22 | Outpatient (CLI) | payer MEDICARE ==
[2020-03-22 14:29] LABS: Basophils % (A) 0 %; Eosinophils # (A) 0.1 k/uL (0-0.7); Eosinophils % (A) 1 %; HCT 46.8 % (39.0-53.0); HGB 15.9 gm/dL (13.0-17.5); Lymphocytes # (A) 1.9 k/uL (1.0-4.8); Lymphocytes % (A) 27 %; MCH 31.2 pg (25.0-35.0); MCV 91.8 fL (80.0-100.0); Mean Platelet Volume 7.7; Monocytes # (A) 0.4 k/uL (0-1.0); Monocytes % (A) 5 %; Neutrophils # (A) 4.5 k/uL (1.3-7.7); Neutrophils % (A) 65 %; Platelet Count 213 k/uL (150-450); RBC 5.09 m/uL (4.30-5.90); RDW 14.6 % (11.5-15.5); WBC 6.9 k/uL (3.8-10.6)
[2020-03-22 15:42] LABS: Erythrocyte Sedimentation Rate 6 mm/hr (0-15)
[2020-03-22 20:54] LABS: Anti-DNA, DS unit <1.0 IU/mL; DNA Double-Stranded NEGATIVE (NEGATIVE)
[2020-03-22 21:08] LABS: ALT 66 U/L (10-49); AST 65 U/L (14-35); African American GFR (CKD) 114.8 (60.0-200.0); Albumin/Globulin Ratio 2.33 (1.60-3.17); Alkaline Phosphatase 97 U/L (41-126); BUN/Creat Ratio 14.29 Ratio (12.00-20.00); C Reactive Protein <0.4 mg/dL (0.0-0.8); Calcium 9.8 mg/dL (8.7-10.3); Carbon Dioxide 24.5 mmol/L (21.6-31.8); Chloride 102 mmol/L (96-109); Chol/HDL Ratio 2.58; Cholesterol 134 mg/dL (0-200); Creatine Kinase 100 U/L (35-257); Globulin 2.1 g/dL (1.6-3.3); Glucose 198 mg/dL (70-110); LDL Cholesterol,Calculated 65.6 mg/dL (0.0-131.0); Magnesium 1.8 mg/dL (1.5-2.4); Phosphorus 3.6 mg/dL (2.4-5.1); Prostate Specific Antigen 1.3 ng/mL (0.0-4.5); Rheumatoid Factor, Qnt <4 IU/mL (0-15); Sodium 141 mmol/L (135-145); Total Bilirubin 0.9 mg/dL (0.3-1.2); Uric Acid 4.8 mg/dL (3.7-8.7)
== END | disposition home or self-care (01) ==
LOC: LABWHC1 13:19
PROVIDERS: ATTEND Internal Medicine Clinical Cardiac Electrophysiology
DX: Z00.00 Encounter for general adult medical examination without abnormal findings (principal); E78.5 Hyperlipidemia, unspecified; I48.91 Unspecified atrial fibrillation; M19.90 Unspecified osteoarthritis, unspecified site; E55.9 Vitamin D deficiency, unspecified
CPT/HCPCS: 36415; 80053; 80061; 82306; 82550; 83735; 84100; 84153; 84443; 84550; 85025; 85652; 86038; 86140; 86225; 86431

== ENCOUNTER → 2020-04-11 | Outpatient (CLI) | payer MEDICARE ==
[2020-04-11 10:47] LABS: Creatinine,Urine Random 183.7 mg/dL; Protein/Creatinine Ratio,Urine 0.218
--- NOTE | 2020-04-11 15:37 | XR ---
Left ankle HISTORY: M 14.672 3 views of the left ankle There is soft tissue swelling present. Spurring present at the tibiotalar joint with loss of joint sp matt, alignment maintained. Bony excrescence at the distal metaphysis of the left tibia is well-cortic ated and shows a nonaggressive appearance. There is a plantar calcaneal spur. Enthesophyte present at the insertion of the Achilles tendon. There is no fracture or dislocation. IMPRESSION: Soft tissue swelling, osteoarthritis
--- NOTE | 2020-04-11 15:59 | US ---
EXAMINATION TYPE: US abdomen complete DATE OF EXAM: 04/11/2020 COMPARISON: NONE CLINICAL HISTORY: K76.0 Fatty (change of) liver. elevated liver enzymes, cholecystectomy EXAM MEASUREMENTS: Liver Length: 18.7 cm Gallbladder Wall: Surgically absent Spleen: 13.1 cm Right Kidney: 14.6 x 5.9 x 5.0 cm Left Kidney: 14.7 x 5.8 x 5.9 cm Technical limitations due to patient's body habitus (morbidly obese) and large amount of overlying bowel content Pancreas: Obscured by bowel gas Liver: limited evaluation, appears enlarged and attenuating, unable to penetrate Gallbladder: Surgically absent Evidence for sonographic Bowles's sign: no CBD: Obscured by overlying bowel gas Spleen: appears wnl Right Kidney: enlarged, no evidence of hydronephrosis Left Kidney: enlarged, no evidence of hydronephrosis Upper IVC: Obscured by overlying bowel gas Abd Aorta: Obscured by overlying bowel gas IMPRESSION: 1. Hepatomegaly with moderate fatty infiltration.
[2020-04-11 17:08] LABS: Hemoglobin A1C 8.3 % (4.0-6.0)
[2020-04-11 19:55] LABS: Urine Creatinine 166.5 mg/dL
== END | disposition home or self-care (01) ==
LOC: RADUSWWP 08:04
PROVIDERS: ATTEND Internal Medicine
DX: K76.0 Fatty (change of) liver, not elsewhere classified (principal); R16.0 Hepatomegaly, not elsewhere classified; M19.072 Primary osteoarthritis, left ankle and foot; M14.672 Charcot's joint, left ankle and foot; I10 Essential (primary) hypertension; E11.65 Type 2 diabetes mellitus with hyperglycemia
CPT/HCPCS: 76700; 82043; 82570; 82947; 83036; 83525; 84156; 86337

== ENCOUNTER → 2020-10-04 | Outpatient (CLI) | payer MEDICARE ==
[2020-10-04 20:49] LABS: Hemoglobin A1C 5.5 % (4.0-6.0)
[2020-10-05 03:01] LABS: African American GFR (CKD) 114.8 (60.0-200.0); Anion Gap 11.7 mmol/L (4.00-12.00); Calcium 10.4 mg/dL (8.7-10.3); Carbon Dioxide 26.3 mmol/L (21.6-31.8); Potassium 4.8 mmol/L (3.5-5.5)
== END | disposition home or self-care (01) ==
LOC: LABWHC1 13:25
PROVIDERS: ATTEND Internal Medicine
DX: E87.8 Other disorders of electrolyte and fluid balance, not elsewhere classified (principal); E11.65 Type 2 diabetes mellitus with hyperglycemia
CPT/HCPCS: 36415; 80048; 83036

== ENCOUNTER 2021-07-19 06:48 | Day surgery (SDC) | payer MEDICARE ==
[2021-07-18 08:28] VITALS: BMI 49.5
[~2021-07-19 06:48] MED LIST changes: -ACETAMINOPHEN TAB 500 MG TAB PO ONE; +ALPRAZolam 0.25 MG TAB PO PRN; +ALPRAZolam 0.5 MG TAB PO PRN; +ASPIRIN 325 MG TAB PO STA; +ATORVASTATIN 80 MG TAB PO STA; -DEXAMETHASONE SOD PHOSPHATE 10 MG/ML 1 ML VIAL IV ONE; -LIDOCAINE 1% 20 ML VIAL (10MG/ML) FOR IV START INTRADERMA PRN; -MELOXICAM 7.5 MG TAB PO ONE; -MIDAZOLAM 2 MG/2 ML VIAL IV PRN; +NITROGLYCERIN SL TABS 0.4 MG TAB SUBLINGUAL PRN; -ONDANSETRON 4 MG/2 ML VIAL IVP ONE; -ROPIVACAINE 246.25 MG, EPINEPHrine 0.5 MG, KETOROLAC 30 MG, cloNIDine HCL/PF 80 MCG, WA... MISCELLANE ONE; +SODIUM CHLORIDE 0.9% 1,000 ML in EMPTY BAG 1 BAG IV SCH; -TRANEXAMIC ACID 1,000 MG in SODIUM CHLORIDE 0.9% 100 ML IVPB ONE; -ceFAZolin 3 GM in SODIUM CHLORIDE 0.9% 100 ML IVPB ONE; -fentaNYL (PF) 50 MCG/ML 2 ML AMP IV PRN
[2021-07-19] MEDS ORDERED: SODIUM CHLORIDE 0.9% 1,000 ML IV ONE ×2 (06:52)
[2021-07-19] MEDS ORDERED: VERAPAMIL 2.5 MG/ML 2 ML AMP ONE (07:12)
[2021-07-19] MEDS ORDERED: HEPARIN SODIUM 1,000 UN/ML (10ML VL) ONE (07:12)
[2021-07-19 07:18] VITALS: RESP 16; TEMP 98
[2021-07-19 07:22] LABS: Glucose,Whole Blood 138 mg/dL (75-99)
[2021-07-19] MEDS ORDERED: fentaNYL (PF) 50 MCG/ML 2 ML AMP ONE (07:40)
[2021-07-19] MEDS ORDERED: fentaNYL (PF) 50 MCG/ML 2 ML AMP IVP ONE (07:47)
[2021-07-19] MEDS ORDERED: MIDAZOLAM 2 MG/2 ML VIAL IVP ONE (07:47)
[2021-07-19] MEDS ORDERED: LIDOCAINE 1% PF 10 MG/ML (5 ML AMP) SQ ONE (07:49)
[2021-07-19] MEDS ORDERED: VERAPAMIL SYRINGE (5 MG/10 ML) INTRAARTER ONE (07:52)
[2021-07-19] MEDS ORDERED: HEPARIN SODIUM 1,000 UN/ML (10ML VL) IV ONE (07:54)
[2021-07-19] MEDS ORDERED: IOPAMIDOL-370 125ML BTL INJ ONE (08:02)
[2021-07-19] MEDS ORDERED: RX INFO: IV CONTRAST WAS GIVEN 1 EACH MISC MISCELLANE PRN (08:11)
--- NOTE | 2021-07-19 08:11 | P.CARDCATH ---
Description of Procedure: PROCEDURES PERFORMED: Left heart catheterization, bilateral coronary angiography INDICATION: Abnormal stress test with mid anterior perfusion defect HISTORY: Patient is a pleasant 66-year-old male with history of atrial fibrillation. He did have 1 episode of chest discomfort a few months ago which was atypical and has had no recurrence since. He has been having mild chronic dyspnea on exertion which has been relatively unchanged. He underwent a stress test which showed midanterior ischemia in the diagonal territory and therefore heart catheterization was recommended. CONSENT:I have discussed the risks, benefits and alternative therapies for the above-mentioned procedure and for both sedation/analgesia as well as necessary blood product administration, if indicated, as they pertain to this patient. The patient has indicated understanding and acceptance of the risks and procedures discussed. PROCEDURE: After the risks, benefits and alternatives of the above mentioned procedure explained in detail with the patient, informed consent was obtained. Patient was taken to the catheterization lab and prepped and draped in usual fashion. 1% lidocaine was used to anesthetize the right radial artery. A 6- Slovenian sheath was placed in the right radial artery using modified Seldinger technique. Left coronary angiography was performed with a 5-Slovenian JL 3.5 catheter and right coronary angiography was performed with a 5-Slovenian JR5 catheter in various views. A 5-Slovenian FR5 catheter was inserted into the left ventricle and pressure measurements were obtained. The right radial sheath was removed and a TR band was placed with hemostasis achieved. The patient tolerated the procedure well. Patient was transported back to the post catheterization holding area in stable condition. Conscious Sedation: Patient was monitored under the direct supervision of vision of myself for conscious sedation using Versed and fentanyl for a total duration of 14 minutes HEMODYNAMICS: Aorta: 112/67 LV: 114/4, LVEDP 17 SELECTIVE CORONARY ARTERIOGRAPHY: LEFT MAIN: The left main is a large caliber vessel which bifurcates into the LAD and circumflex. There is no significant stenosis. LEFT ANTERIOR DESCENDING CORONARY ARTERY: LAD is a large caliber vessel which wraps around to the apex. There is no significant stenosis of the LAD. Diagonal 1 branch is small to moderate caliber and has a proximal 30-40% stenosis. LEFT CIRCUMFLEX CORONARY ARTERY: Left circumflex is a moderate caliber vessel without significant stenosis. RIGHT CORONARY ARTERY: The right coronary artery is a large caliber vessel which gives off a PDA and PLV branch and is the dominant vessel. There are mild luminal irregularities of the RCA. FINAL IMPRESSION: 1. Relatively normal coronary arteries with only a 30-40% diagonal 1 stenosis 2. Elevated left sided filling pressures PLAN: 1. Aggressive risk factor modification per most recent ACC/AHA guidelines. 2. Diagonal branch is in the territory of the abnormal stress test however patient's symptoms are atypical and diagonal branch is only 30-40% stenosis. Would continue with medical therapy.
[2021-07-19 09:58] VITALS: BP 144/85
[2021-07-19 10:43] VITALS: PULSE 71
[2021-07-20] MEDS ORDERED: HEPARIN SODIUM,PORCINE 2,500 UNIT in SODIUM CHLORIDE 0.9% 250 ML IRRIGATION PRN (07:00)
[2021-07-20] MEDS ORDERED: HEPARIN SODIUM,PORCINE 10,000 UNIT in SODIUM CHLORIDE 0.9% 1,000 ML IRRIGATION PRN (07:00)
== END 2021-07-19 11:30 | disposition home or self-care (01) ==
LOC: CATHCVL 06:48
PROVIDERS: ATTEND Internal Medicine
DX: R94.39 Abnormal result of other cardiovascular function study (principal); I25.10 Atherosclerotic heart disease of native coronary artery without angina pectoris; I48.19 Other persistent atrial fibrillation; I10 Essential (primary) hypertension; E11.9 Type 2 diabetes mellitus without complications; E78.5 Hyperlipidemia, unspecified; F17.210 Nicotine dependence, cigarettes, uncomplicated; Z20.822 Contact with and (suspected) exposure to COVID-19; Z79.899 Other long term (current) drug therapy; Z79.84 Long term (current) use of oral hypoglycemic drugs; Z79.01 Long term (current) use of anticoagulants
CPT/HCPCS: 93458; 87635; C1894; J2250; J2001; J3010; J1644; Q9967

== ENCOUNTER 2022-07-08 06:58 | Day surgery (SDC) | payer MEDICARE ==
[2022-07-03 12:16] VITALS: BMI 50.1
[~2022-07-08 06:58] MED LIST changes: -ALPRAZolam 0.25 MG TAB PO PRN; -ALPRAZolam 0.5 MG TAB PO PRN; -ASPIRIN 325 MG TAB PO STA; -ATORVASTATIN 80 MG TAB PO STA; +LACTATED RINGERS 1,000 ML IV SCH; -NITROGLYCERIN SL TABS 0.4 MG TAB SUBLINGUAL PRN; -SODIUM CHLORIDE 0.9% 1,000 ML in EMPTY BAG 1 BAG IV SCH
[2022-07-08 07:30] LABS: Glucose,Whole Blood 108 mg/dL (70-110)
[2022-07-08 07:33] VITALS: TEMP 98.2
[2022-07-08] MEDS ORDERED: PROPOFOL 10 MG/ML 20 ML VIAL IV ONE (08:05)
--- NOTE | 2022-07-08 08:10 | P.GSHP ---
History of Present Illness H&P Date: 07/08/22 Chief Complaint: Abnormal stool test 67-year-old male here for colonoscopy. Patient had recent stool test that was abnormal. Last colonoscopy 4 years ago. Had 2 colon polyps at that time. Family history of colon cancer in his mother. Past Medical History Past Medical History: Atrial Fibrillation, Coronary Artery Disease (CAD), Diabetes Mellitus, GERD/Reflux, Hyperlipidemia, Hypertension, Osteoarthritis (OA), Sleep Apnea/CPAP/BIPAP Additional Past Medical History / Comment(s): "enlarged heart", beginning of cataracts domonique eyes, past cellulits lt testicle and uti-ecoli 02-28-17. use cpap machine for liz. + COLOGARD History of Any Multi-Drug Resistant Organisms: None Reported Past Surgical History: Cardiac Ablation, Cholecystectomy, EPS, Orthopedic S urgery Additional Past Surgical History / Comment(s): cardioversion,ep studies, left eardrum surgery , rt knee arthroscopy, COLONOSCOPY Past Anesthesia/Blood Transfusion Reactions: Previous Problems w/ Anesthesia Additional Past Anesthesia/Blood Transfusion Reaction / Comment(s): "had OT agitation and combative with lewis".No hx blood transfusion Smoking Status: Former smoker - Past Family History Mother Family Medical History: Cancer Additional Family Medical History / Comment(s): colon cancer Sister(s) Family Medical History: Cancer Additional Family Medical History / Comment(s): brain cancer Father Family Medical History: Cancer Additional Family Medical History / Comment(s): bladder cancer Brother(s) Additional Family Medical History / Comment(s): MS- Medications and Allergies Home Medications Medication Instructions Recorded Confirmed Type Aspirin EC [Ecotrin Low Dose] 81 mg PO DAILY 09/05/16 07/03/22 History Cholecalciferol [Vitamin D3 (25 125 mcg PO DAILY 09/05/16 07/03/22 History Mcg = 1000 Iu)] Dofetilide [Tikosyn] 500 mcg PO Q12HR 09/05/16 07/03/22 History Magnesium Chloride [Slow-Mag] 64 mg PO TID 09/05/16 07/03/22 History Multivitamins, Thera [Multivitamin 1 tab PO DAILY 09/05/16 07/03/22 History (formulary)] Omeprazole 20 mg PO DAILY 09/05/16 07/08/22 History Rivaroxaban [Xarelto] 20 mg PO DAILY 09/05/16 07/08/22 History Atorvastatin [Lipitor] 20 mg PO DAILY 08/27/18 07/03/22 History Acetaminophen [Tylenol Arthritis] 650 mg PO BID 10/10/18 07/08/22 History Indomethacin [Indocin] 50 mg PO DAILY 10/10/18 07/03/22 History Vitamin E (Dl,Tocopheryl Acet) 180 unit PO BID 10/10/18 07/03/22 History [Vitamin E] Kaylynn C 500 mg PO BID 07/18/21 07/08/22 History Pioglitazone HCl 30 mg PO DAILY 07/18/21 07/08/22 History Valsartan [Diovan] 320 mg PO DAILY 07/18/21 07/08/22 History amLODIPine [Norvasc] 10 mg PO DAILY 07/18/21 07/03/22 History metFORMIN HCL [Glucophage] 1,000 mg PO BID 07/18/21 07/08/22 History Allergies Allergy/AdvReac Type Severity Reaction Status Date / Time azithromycin [From Zithromax] AdvReac STATES Verified 07/08/22 07:14 INCOMPATABLE WITH TIKOSYN ciprofloxacin [From Cipro] AdvReac STATES Verified 07/08/22 07:14 INCOMPATABLE WITH TIKOSYN clarithromycin [From Biaxin] AdvReac STATES Verified 07/08/22 07:14 INCOMPATABLE WITH TIKOSYN levofloxacin [From Levaquin] AdvReac STATES Verified 07/08/22 07:14 INCOMPATABLE WITH TIKOSYN sulfamethoxazole AdvReac STATES Verified 07/08/22 07:14 [From Bactrim] INCOMPATABLE WITH TIKOSYN trimethoprim [From Bactrim] AdvReac STATES Verified 07/08/22 07:14 INCOMPATABLE WITH TIKOSYN Surgical - Exam Vital Signs Temp Pulse Resp BP Pulse Ox 98.2 F 83 16 152/72 97 07/08/22 07:32 07/08/22 07:32 07/08/22 07:32 07/08/22 07:32 07/08/22 07:32 Physical exam: General: Well-developed, well-nourished HEENT: Normocephalic, sclerae nonicteric Abdomen: Nontender, nondistended Extremities: No edema Neuro: Alert and oriented Assessment and Plan (1) Abnormal stool test Narrative/Plan: Will proceed with colonoscopy at this time. Current Visit: Yes Status: Acute Code(s): R19.5 - OTHER FECAL ABNORMALITIES SNOMED Code(s): 564064791
[2022-07-08] MEDS ORDERED: IV FLUID CONTINUATION 1,000 ML IV ONE (08:22)
--- NOTE | 2022-07-08 08:28 | P.PCN ---
Date of Procedure: 07/08/22 Procedure(s) Performed: PREOPERATIVE DIAGNOSIS: Abnormal stool test POSTOPERATIVE DIAGNOSIS: Small rectal polyp PROCEDURE: Colonoscopy with snare polypectomy ANESTHESIA: MAC SURGEON: Azeem Patterson M.D. SPECIMENS: Rectal polyp ENDOSCOPIC PROCEDURE: The patient was placed on the endoscopy table in the left decubitus position. The Olympus colonoscope was inserted into the anus and passed under direct visualization to the base of the cecum. The appendiceal orifice was visualized. From that point the scope was slowly withdrawn inspecting all surfaces carefully. There were no neoplastic inflammatory or polypoid lesions throughout the cecum, ascending, transverse, descending, and sigmoid colon. In the rectum a small polyp was seen and removed using the snare with cautery technique. There was no definite diverticulosis seen. Digital rectal examination was normal. The patient was taken to the recovery room in stable condition per anesthesia guidelines. RECOMMENDATIONS: Await biopsy results. Repeat colonoscopy 5 years
[2022-07-08 08:32] VITALS: PULSE 73
[2022-07-08 08:48] VITALS: BP 105/72; RESP 16
== END 2022-07-08 09:10 ==
LOC: ORWHC2ENDO 06:58
PROVIDERS: ATTEND Surgery
DX: K62.1 Rectal polyp (principal); Z80.0 Family history of malignant neoplasm of digestive organs; I48.91 Unspecified atrial fibrillation; I25.10 Atherosclerotic heart disease of native coronary artery without angina pectoris; E11.9 Type 2 diabetes mellitus without complications; K21.9 Gastro-esophageal reflux disease without esophagitis; I10 Essential (primary) hypertension; E78.5 Hyperlipidemia, unspecified; E66.01 Morbid (severe) obesity due to excess calories; Z68.43 Body mass index [BMI] 50.0-59.9, adult; M19.90 Unspecified osteoarthritis, unspecified site; G47.33 Obstructive sleep apnea (adult) (pediatric); Z99.89 Dependence on other enabling machines and devices; Z87.891 Personal history of nicotine dependence; Z79.82 Long term (current) use of aspirin; Z79.01 Long term (current) use of anticoagulants; Z79.899 Other long term (current) drug therapy; Z79.84 Long term (current) use of oral hypoglycemic drugs; Z88.1 Allergy status to other antibiotic agents; Z88.2 Allergy status to sulfonamides
CPT/HCPCS: 88305; 45385; J2704

== ENCOUNTER → 2022-09-23 | Outpatient (CLI) | payer MEDICARE ==
[2022-09-23 20:49] LABS: BUN/Creat Ratio 15.33 Ratio (12.00-20.00); Blood Urea Nitrogen 9.2 mg/dL (9.0-27.0); Carbon Dioxide 23.3 mmol/L (21.6-31.8); Chloride 106 mmol/L (96-109); Glucose 100 mg/dL (70-110); Potassium 4.5 mmol/L (3.5-5.5); Sodium 143 mmol/L (135-145)
== END | disposition home or self-care (01) ==
LOC: LABWHC1 13:22
PROVIDERS: ATTEND Internal Medicine Interventional Cardiology
DX: I10 Essential (primary) hypertension (principal)
CPT/HCPCS: 36415; 80048; 83735

== ENCOUNTER → 2022-11-06 | Outpatient (CLI) | payer MEDICARE | END | disposition home or self-care (01) | LOC: LABWHC1 10:14 | PROVIDERS: ATTEND Internal Medicine | DX: E11.65 Type 2 diabetes mellitus with hyperglycemia (principal) | CPT/HCPCS: 36415; 82947; 83036 ==

== ENCOUNTER → 2023-06-04 | Outpatient (CLI) | payer MEDICARE ==
[2023-06-05 02:46] LABS: BUN/Creat Ratio 17.83 Ratio (12.00-20.00); Blood Urea Nitrogen 10.7 mg/dL (9.0-27.0); Calcium 10.3 mg/dL (8.7-10.3); Carbon Dioxide 24.8 mmol/L (21.6-31.8); Chloride 104 mmol/L (96-109); Glucose 104 mg/dL (70-110); Potassium 4.3 mmol/L (3.5-5.5); Sodium 142 mmol/L (135-145)
== END | disposition home or self-care (01) ==
LOC: LABWHC1 12:45
PROVIDERS: ATTEND Internal Medicine
DX: E11.65 Type 2 diabetes mellitus with hyperglycemia (principal)
CPT/HCPCS: 36415; 80048; 83036

== ENCOUNTER → 2023-12-22 | Outpatient (CLI) | payer MEDICARE | END | disposition home or self-care (01) | LOC: LABWHC1 12:29 | PROVIDERS: ATTEND Internal Medicine | DX: E11.65 Type 2 diabetes mellitus with hyperglycemia (principal) | CPT/HCPCS: 36415; 82947; 83036 ==